=== PATIENT | male | born 1950 | race Caucasian/White ===

== ENCOUNTER 2023-04-19 09:42 | Outpatient (OUT) | payer MEDICARE, SELFPAY ==
[2023-04-19 10:08] LABS: Basophils Percent Auto 0.2 % (0.2-2.0); Eosinophils Absolute Auto 0.1 10^3/uL (0.0-0.7); Eosinophils Percent Auto 1.9 % (0.9-7.0); Hematocrit 44.4 % (42.0-54.0); Immature Granulocytes Abs Auto 0.02 10^3/uL (0.00-0.03); Immature Granulocytes Pct Auto 0.3 % (0.0-0.5); Lymphocytes Absolute Auto 1.3 10^3/uL (1.2-3.8); Lymphocytes Percent Auto 20.7 % (20.5-60.0); Mean Corpuscular HGB Conc 33.8 g/dL (29.9-35.2); Mean Corpuscular Volume 85.9 fL (80.0-94.0); Mean Platelet Volume 10.4 fL (9.5-13.5); Monocytes Absolute Auto 0.6 10^3/uL (0.3-0.8); Monocytes Percent Auto 9.1 % (1.7-12.0); Neutrophils Absolute Auto 4.2 10^3/uL (1.4-6.5); Neutrophils Percent Auto 67.8 % (43.0-75.0); Platelet Count 198 10^3/uL (150-450); Red Blood Count 5.17 10^6/uL (4.70-6.10); Red Cell Distribution Width 12.1 % (11.0-15.0); White Blood Count 6.2 10^3/uL (4.0-11.0)
[2023-04-19 11:13] LABS: Prostate Specific Antigen Scrn 3.83 ng/mL (<=4.00)
[2023-04-19 11:20] LABS: Alanine Aminotransferase 36 U/L (16-63); Albumin Globulin Ratio 1.2; Albumin Level 3.6 g/dL (3.4-5.0); Alkaline Phosphatase 67 U/L (46-116); Anion Gap 10.2; Aspartate Amino Transferase 22 U/L (15-37); BUN Creatinine Ratio 17.9; Bilirubin Total 0.7 mg/dL (0.2-1.0); Calcium 8.9 mg/dL (8.5-10.1); Carbon Dioxide 28.8 mmol/L (21.0-32.0); Chloride 106 mmol/L (98-107); Chol HDL Ratio 2.6; Cholesterol 125 mg/dL (<=200); Estimated GFR (African America >60 (>=60); Estimated GFR (Non-African Ame >60 (>=60); Globulin 3.1 g/dL; Glucose 102 mg/dL (74-106); HDL Cholesterol 48 mg/dL (40-60); Sodium 141 mmol/L (136-145); Total Protein 6.7 g/dL (6.4-8.2); Triglycerides 70 mg/dL (<=150)
== END 2023-04-19 09:43 ==
LOC: LAB 09:45
PROVIDERS: PCP Family Medicine; Visit Provider Family Medicine
DX: N40.0 Benign prostatic hyperplasia without lower urinary tract symptoms (principal); E78.5 Hyperlipidemia, unspecified; M19.90 Unspecified osteoarthritis, unspecified site
CPT/HCPCS: 36415; 80053; 80061; 85025; G0103

== ENCOUNTER 2023-09-20 13:20 | Emergency (ER) | payer MEDICARE, SELFPAY ==
[2023-09-20] VITALS (8 sets, daily range): BP systolic 185–195; BP diastolic 77–116; PULSE 70–76; RESP 18–19; TEMP 37.2; O2SAT 95–98; BMI 33.5
--- NOTE | 2023-09-20 13:44 | ECG_ITS ---
[facility] Test Date: 2023-09-20 Pat Name: VARUN ACE Department: Room: - Gender: Male [employer]: : 1950 Requested By: Order Number: [id number] Reading MD: VENANCIO GOODEN Measurements Intervals [place] Rate: 73 P: 2 NC: 110 QRS: 3 QRSD: 96 T: 24 QT: 388 QTc: 413 Interpretive Statements 1100 Sinus rhythm 2210 Short NC interval 5233 Voltage criteria for LVH 9150 abnormal ECG No previous ECG available for comparison Electronically Signed On 09-21-2023 7:03:14 EST by VENANCIO GOODEN
--- NOTE | 2023-09-20 13:44 | CT_ITS ---
[address] [address] Patient Name: VARUN ACE MRN: [id number] date: 1950 Sex: M Assigned Patient Location: ER Current Patient Location: ER Accession/Order Number: [id number] Exam Date: 09/20/2023 14:56 Report Date: 09/20/2023 15:37 At the request of: COLLINS BORGES Procedure: CT abdomen pelvis w con CLINICAL HISTORY: Abdominal pain. Left-sided abdominal pain. EXAMINATION: Enhanced CT scan of the abdomen and pelvis: 09/20/2023. COMPARISON: None. TECHNIQUE: 3 mm axial images from lung bases through ischial tuberosities following administration of intravenous as well as oral contrast were obtained. Sagittal, coronal reconstructions were also performed. FINDINGS: The visualized lung bases, demonstrate some atelectatic changes in the right middle lobe, right lower lobe. The heart size seems normal. There is slightly elevated right hemidiaphragm. CT ABDOMEN: There is a low-density lesion in the lateral segment of left hepatic lobe, has lobulated appearance, measuring approximately 2.1 cm in the widest transverse dimension, with average Hounsfield units of approximately 1. There are several other low-density lesions further inferiorly in the right as well as left hepatic lobe with other larger lesion further inferiorly in the lateral segment of left hepatic lobe, measuring 1.9 cm with average Hounsfield units of 10. The gallbladder, spleen, right adrenal gland, pancreas seem normal. There is a round low-density lesion in the left adrenal gland, which measures approximately 1.6 x 1.7 cm, average Hounsfield units of approximately 30. However this is postcontrast. There is no hydronephrosis or nephrolithiasis involving the right kidney. There is no definite ureterolithiasis. There is probably a calcified phlebolith along the vicinity of the distal right ureter. There is slight fullness to the collecting systems of the left kidney as well as mildly dilated left ureter. There is no nephrolithiasis. There is no definite calculus seen in the left ureter. However there are a few faint calculi at the base of the bladder probably recently passed. The abdominal aorta is moderately atherosclerotic. There is no retroperitoneal or mesenteric adenopathy. The bowel loops are of normal caliber with a normal-appearing appendix. There are scattered diverticula in the colon. CT PELVIS: Except for a few calculi at the base of the bladder, the bladder is normal. The prostate is enlarged. The overall size of the prostate seems to be 5.8 x 6.6 cm. There is no pelvic adenopathy. There are no focal fluid collections. The visualized osseous structures demonstrate grade 1 spondylolysis of L5 with respect to S1 with bilateral pars defects at the level of L5 with multilevel degenerative disc disease with vacuum disc phenomena at L1-L2, L3-L4, L4-5, and L5-S1. CT/CT abdomen pelvis w con IMPRESSION: 1. There is mild fullness to the collecting systems of the left kidney and mildly dilated left ureter without obstructive uropathy probably due to a recently passed calculus as can be seen some calculi at the base of the bladder. 2. No nephro- or ureterolithiasis on the right. 3. Normal appendix. 4. Diverticulosis without diverticulitis. 5. Prostatomegaly. Electronically authenticated by: JULIANA MCINTYRE Date: 09/20/2023 15:37
--- NOTE | 2023-09-20 13:46 | ED.ABDPAIN1 ---
HPI - Abdominal Pain General Chief Complaint: Abdominal Pain Stated Complaint: FLANK PAIN LEFT SIDE Time Seen by Provider: 09/20/23 13:35 Source: patient Mode of arrival: walk-in History of Present Illness HPI narrative: patient is a 72-year-old male who presents to the emergency department for the evaluation of intermittent left-sided abdominal pain for the last four days. He states the pain comes and goes. He states initially the pain was located in the left lower abdomen and seems to have radiated to the left upper quadrant of the abdomen. He has had dry heaving, no objective fevers. Parish states he has had dark urine, no history of kidney stones. He has been using MiraLAX and stool softeners as he believed he was constipated. He has been having bowel movements throughout the last four days and states he had a normal bowel movement this morning. He denies any previous abdominal surgeries. Related Data Previous Rx's Medication Instructions Recorded ciprofloxacin HCl 500 mg tablet 500 mg PO Q12H #14 tabs 09/20/23 hyoscyamine sulfate 0.125 mg 0.125 mg PO Q6H PRN abdominal pain 09/20/23 tablet (Levsin) #12 tabs ondansetron 4 mg disintegrating 4 mg PO Q6H PRN nausea and 09/20/23 tablet vomiting #12 tabs Allergies Allergy/AdvReac Type Severity Reaction Status Date / Time No Known Drug Allergies Allergy Verified 09/20/23 13:31 Review of Systems ROS Constitutional Denies: fever or chills Ears, nose, mouth, and throat Denies: throat pain Cardiovascular Denies: chest pain Respiratory Denies: shortness of breath or cough Gastrointestinal Reports: abdominal pain, nausea and vomiting; Denies: diarrhea Genitourinary Denies: painful urination Musculoskeletal Denies: back pain Integumentary/Breast Denies: rash Neurological Denies: headache Hematologic/Lymphatic Denies: easy bruising Exam Narrative Exam Narrative: Gen.: Awake, alert, in no distress Head: Normocephalic, atraumatic ENT: Moist mucous membranes Respiratory: No respiratory distress Gastrointestinal: Abdomen is soft, nondistended and mildly tender in the left upper quadrant, no guarding or rebound Extremities: Moves extremities equally Psych: Normal mood and affect Neuro: No focal neuro deficit Skin: Warm, dry, intact Constitutional Vital Signs, click to edit/add: Last Vital Signs Temp 99.0 F 09/20/23 13:27 Pulse 72 09/20/23 14:43 Resp 18 09/20/23 14:43 BP 185/98 H 09/20/23 14:43 Pulse Ox 98 09/20/23 14:43 O2 Del Method Room Air 09/20/23 14:43 Course Vital Signs Vital signs: Vital Signs Temperature 99.0 F 09/20/23 13:27 Pulse Rate 70 09/20/23 13:27 Respiratory Rate 18 09/20/23 13:27 Blood Pressure 190/77 H 09/20/23 13:27 Pulse Oximetry 98 09/20/23 13:27 Oxygen Delivery Method Room Air 09/20/23 13:27 Temperature 99.0 F 09/20/23 13:27 Pulse Rate 72 09/20/23 14:43 Respiratory Rate 18 09/20/23 14:43 Blood Pressure 185/98 H 09/20/23 14:43 Pulse Oximetry 98 09/20/23 14:43 Oxygen Delivery Method Room Air 09/20/23 14:43 MDM - Abdominal Pain MDM Narrative Medical decision making narrative: patient's lab studies show urinary tract infection with no other acute abnormality or evidence of sepsis. Patient treated with IV fluids, Levsin, Toradol, Zofran. CT of the abdomen and pelvis with IV and oral contrast shows the patient has mild hydroureter consistent with a possible recently passed stone, no other visualized ureteral stone noted. Patient with stable creatinine in the Emergency Room. He will be treated for pain, urinary tract infection. Follow-up with PCP and return to the Emergency Room if symptoms change or worsen. Medical Records Attestation: I reviewed the patient's medical records. Lab Data Attestation: I reviewed the patient's lab results. Labs: Lab Results 09/20/23 Range/Units 13:50 WBC 11.4 H (4.0-11.0) 10^3/uL RBC 5.02 (4.70-6.10) 10^6/uL Hgb 14.9 (14.0-18.0) g/dL Hct 43.9 (42.0-54.0) % MCV 87.5 (80.0-94.0) fL MCH 29.7 (25.9-34.0) pg MCHC 33.9 (29.9-35.2) g/dL RDW 12.2 (11.0-15.0) % Plt Count 207 (150-450) 10^3/uL MPV 10.3 (9.5-13.5) fL Neut % (Auto) 83.0 H (43.0-75.0) % Lymph % (Auto) 7.3 L (20.5-60.0) % [place] % (Auto) 8.8 (1.7-12.0) % Eos % (Auto) 0.5 L (0.9-7.0) % Baso % (Auto) 0.2 (0.2-2.0) % Neut # (Auto) 9.5 H (1.4-6.5) 10^3/uL Lymph # (Auto) 0.8 L (1.2-3.8) 10^3/uL [place] # (Auto) 1.0 H (0.3-0.8) 10^3/uL Eos # (Auto) 0.1 (0.0-0.7) 10^3/uL Baso # (Auto) 0.0 (0.0-0.1) 10^3/uL Abs Immat Gran (auto) 0.02 (0.00-0.03) 10^3/uL Imm/Tot Granulo (auto) 0.2 (0.0-0.5) % Sodium 141 (136-145) mmol/L Potassium 4.2 (3.5-5.1) mmol/L Chloride 102 (98-107) mmol/L Carbon Dioxide 29.1 (21.0-32.0) mmol/L Anion Gap 14.1 BUN 22.0 H (7.0-18.0) mg/dL Creatinine 1.08 (0.70-1.30) mg/dL Est GFR ( Amer) >60 (>=60) Est GFR (Non-Af Amer) >60 (>=60) BUN/Creatinine Ratio 20.4 Glucose 113 H (74-106) mg/dL Lactate 1.1 (0.4-2.0) mmol/L Calcium 8.9 (8.5-10.1) mg/dL Total Bilirubin 1.0 (0.2-1.0) mg/dL AST 62 H (15-37) U/L ALT 35 (16-63) U/L Alkaline Phosphatase 70 (46-116) U/L Total Protein 7.1 (6.4-8.2) g/dL Albumin 4.0 (3.4-5.0) g/dL Globulin 3.1 g/dL Albumin/Globulin Ratio 1.3 Urine Color Yellow (YELLOW) Urine Clarity Cloudy A (CLEAR) Urine pH 5.5 (5.0-9.0) Ur Specific [place] 1.025 (1.005-1.025) Urine Protein 30 A (NEG/TRACE) mg/dL Urine Glucose (UA) Negative (NEGATIVE) mg/dL Urine Ketones Trace A (NEGATIVE) mg/dL Urine Occult Blood Large A (NEGATIVE) Urine Nitrite Negative (NEGATIVE) Urine Bilirubin Negative (NEGATIVE) Urine Urobilinogen 0.2 (0.2-1.0) EU/dL Ur Leukocyte Esterase Trace A (NEGATIVE) Urine RBC >100 A (0-2) #/HPF Urine WBC 5-10 A (NONE SEEN) #/HPF Ur Squamous Epith Cells Rare (NONE/RARE) #/LPF Urine Crystals None seen (None Seen) #/HPF Urine Bacteria Small A (NONE SEEN) #/HPF Urine Casts None seen (NONE SEEN) #/LPF Urine Mucus None seen (NONE SEEN) Urine Yeast Seen A (NONE SEEN) Ur Culture Indicated? Yes Imaging Data CT scan - abdomen: Attestation: I have reviewed the pertinent imaging results. ECG Data Attestation: I personally reviewed and interpreted this ECG as follows: (normal sinus rhythm at a rate of seventy-three, no acute ST elevation or ectopy. EKG reviewed by attending physician) ECG interpretation date: 09/20/23 ECG interpretation time: 14:13 Discharge Plan Discharge Chief Complaint: Abdominal Pain Clinical Impression: Urinary tract infection, Abdominal pain Patient Disposition: Home, Self-Care Time of Disposition Decision: 15:51 Condition: Good Prescriptions / Home Meds: New ciprofloxacin HCl 500 mg tablet 500 mg PO Q12H Qty: 14 0RF hyoscyamine sulfate [Levsin] 0.125 mg tablet 0.125 mg PO Q6H PRN (Reason: abdominal pain) Qty: 12 0RF ondansetron 4 mg tablet,disintegrating 4 mg PO Q6H PRN (Reason: nausea and vomiting) Qty: 12 0RF Instructions: Urinary Tract Infection in Men (ED), Abdominal Pain (ED) Stand Alone Forms: Portal Instructions Referrals: Physician,Non-Staff, MD [Primary Care Provider] - 1 week Discharge Date/Time: 09/20/23 16:05
[2023-09-20] MEDS: KETOROLAC TROMETHAMINE 30 MG/ML VIAL 15 MG IVP (13:56)
[2023-09-20] MEDS: ONDANSETRON PF 4 MG/2 ML VIAL IV (13:56)
[2023-09-20] MEDS: 0.9 % SODIUM CHLORIDE 1,000 ML 1000 ML IV (13:56)
[2023-09-20] MEDS: HYOSCYAMINE SULFATE 0.125 MG TAB.SUBL SL (13:57)
[2023-09-20 14:01] LABS: Basophils Percent Auto 0.2 % (0.2-2.0); Bilirubin Urine NEGATIVE (NEGATIVE); Blood Urine LARGE (NEGATIVE); Clarity Urine CLOUDY (CLEAR); Color Urine YELLOW (YELLOW); Eosinophils Absolute Auto 0.1 10^3/uL (0.0-0.7); Eosinophils Percent Auto 0.5 % (0.9-7.0); Glucose Urine UA NEGATIVE (NEGATIVE); Hematocrit 43.9 % (42.0-54.0); Hemoglobin 14.9 g/dL (14.0-18.0); Immature Granulocytes Abs Auto 0.02 10^3/uL (0.00-0.03); Immature Granulocytes Pct Auto 0.2 % (0.0-0.5); Ketones Urine TRACE mg/dL (NEGATIVE); Leukocyte Esterase Urine TRACE (NEGATIVE); Lymphocytes Absolute Auto 0.8 10^3/uL (1.2-3.8); Lymphocytes Percent Auto 7.3 % (20.5-60.0); Mean Corpuscular HGB Conc 33.9 g/dL (29.9-35.2); Mean Corpuscular Hemoglobin 29.7 pg (25.9-34.0); Mean Corpuscular Volume 87.5 fL (80.0-94.0); Mean Platelet Volume 10.3 fL (9.5-13.5); Monocytes Percent Auto 8.8 % (1.7-12.0); Neutrophils Absolute Auto 9.5 10^3/uL (1.4-6.5); Nitrite Urine NEGATIVE (NEGATIVE); Platelet Count 207 10^3/uL (150-450); Protein Urine 30 mg/dL (NEG/TRACE); Red Blood Count 5.02 10^6/uL (4.70-6.10); Red Cell Distribution Width 12.2 % (11.0-15.0); Specific Gravity Urine 1.025 (1.005-1.025); Urobilinogen Urine 0.2 EU/dL (0.2-1.0); White Blood Count 11.4 10^3/uL (4.0-11.0); pH Urine 5.5 (5.0-9.0)
[2023-09-20 14:16] LABS: Alanine Aminotransferase 35 U/L (16-63); Albumin Globulin Ratio 1.3; Alkaline Phosphatase 70 U/L (46-116); Anion Gap 14.1; Aspartate Amino Transferase 62 U/L (15-37); BUN Creatinine Ratio 20.4; Calcium 8.9 mg/dL (8.5-10.1); Carbon Dioxide 29.1 mmol/L (21.0-32.0); Chloride 102 mmol/L (98-107); Estimated GFR (African America >60 (>=60); Estimated GFR (Non-African Ame >60 (>=60); Globulin 3.1 g/dL; Glucose 113 mg/dL (74-106); Potassium 4.2 mmol/L (3.5-5.1); Sodium 141 mmol/L (136-145); Total Protein 7.1 g/dL (6.4-8.2)
[2023-09-20 14:17] LABS: Urine Microscopic Indicated YES
[2023-09-20 14:18] LABS: Bacteria Urine SMALL #/HPF (NONE SEEN); Cast Seen? NONE SEEN #/LPF (NONE SEEN); Crystals Seen? None Seen #/HPF (None Seen); Mucus Urine NONE SEEN (NONE SEEN); RBC Urine >100 #/HPF (0-2); Squamous Epithelial Cell Urine RARE #/LPF (NONE/RARE); Urine Culture Indicated YES
[2023-09-20 14:19] LABS: Lactate/Lactic Acid 1.1 mmol/L (0.4-2.0)
== END 2023-09-20 16:05 | disposition home or self-care (01) ==
PROVIDERS: Physician Assistant; Emergency Provider Emergency Medicine
DX: N39.0 Urinary tract infection, site not specified (principal); R10.32 Left lower quadrant pain; K57.90 Diverticulosis of intestine, part unspecified, without perforation or abscess without bleeding
CPT/HCPCS: 36415; 74177; 80053; 81001; 81003; 83605; 85025; 87086; 93005; 96374; 96375; 99285; Q9966; Q9967

== ENCOUNTER 2024-06-18 08:35 | Outpatient (OUT) | payer MEDICARE, SELFPAY ==
--- OUTSIDE RECORDS SUMMARY | 2024-06-18 08:52 | XMS_ITS | CCD ---
Author Organization [facility] CliniSyin Care Team Providers Care Health Care Administrator Name Role Phone HOUSE, DR GUO Admitting Unavailable HOUSE, DR GUO Attending Unavailable HOUSE, DR GUO Primary Care Unavailable HOUSE, DR GUO Consulting Unavailable HOUSE, DR GUO Admitting Unavailable HOUSE, DR GUO Attending Unavailable HOUSE, DR GUO Primary Care Unavailable HOUSE, DR GUO Consulting Antoine Torres Primary Care Physician [phone] Antoine Madden Attending Antoine Torres Attending Unavailable MATY KENNEY Attending Adamsab MATY Fay Admitting Unavailab MATY Fay Attending Unavailab Antoine Gordon Admitting Unavailable Antoine Madden Attending Unavailable Antoine Madden Attending Unavailable Antoine Madden Attending Unavailable MATY KENNEY Admitting Unavailab MATY Fay Attending Adamsab jose Allergies Allergy Classification Reported Allergen(s) Allergy Type Date of Onset Reaction(s) Facility (1 source) No Known Medication Allergies; Translations: [No Known Medication Allergies] Propensity to adverse reactions (disorder) [facility] Repository Medications Current Medications Medication Drug Class(es) Dates Sig (Normalized) Sig (Original) Pepcid Complete (5 sources) Histamine-2 Receptor Antagonist Start: 03-18-2024 take 1 tablet by mouth once daily Pepcid Complete 1 tab(s), Oral, Daily, Refill(s) 0, takes when needed Start Date: 03/18/24 Status: Ordered meloxicam 15 mg oral tablet (5 sources) Nonsteroidal Anti-inflammatory Drug Start: 03-18-2024 take 1 tablet by mouth once daily meloxicam 15 mg Tab 15 mg = 1 tab(s), Oral, Daily, # 90 tab(s), Refills(s) 0, Pharmacy: [id number], 177.5, cm, 03/18/24 7:06:00 EDT, Height/Length Dosing, 108.2, kg, 03/18/24 7:06:00 EDT, Weight Dosing Start Date: 03/18/24 Status: Ordered Psyllium (5 sources) Start: 03-18-2024 Metamucil See Instructions, Takes twice a amanda with at least 8 ounces of wate., Refills(s) 0 Start Date: 03/18/24 Status: Ordered rosuvastatin calcium 20 mg oral tablet (5 sources) HMG-CoA Reductase Inhibitor Start: 03-18-2024 take 1 tablet by mouth once daily at bedtime rosuvastatin 20 mg Tab 20 mg = 1 tab(s), Oral, Once a day (at bedtime), # 90 tab(s), Refills(s) 0, Pharmacy: [id number], 177.5, cm, 03/18/24 7:06:00 EDT, Height/Length Dosing, 108.2, kg, 03/18/24 7:06:00 EDT, Weight Dosing Start Date: 03/18/24 Status: Ordered tamsulosin hydrochloride 0.4 mg oral capsule (5 sources) alpha-Adrenergic Ted Start: 06-12-2024 End: 06-07-2025 take 2 capsules by mouth once daily tamsulosin 0.4 mg Cap 0.8 mg = 2 cap(s), Oral, Daily, X 90 day(s), # 180 cap(s), Refills(s) 3, Pharmacy: [id number], 180, cm, 06/12/24 9:13:00 EDT, Height/Length Dosing, 108, kg, 06/12/24 9:13:00 EDT, Weight Dosing Start Date: 06/12/24 Stop Date: 06/07/25 Status: Ordered Start: 03-18-2024 take 1 capsule by mo njh once daily tamsulosin 0.4 mg Cap 0.4 mg = 1 cap(s), Oral, Daily, # 90 cap(s), Refills(s) 0, Pharmacy: [id number], 177.5, cm, 03/18/24 7:06:00 EDT, Height/Length Dosing, 108.2, kg, 03/18/24 7:06:00 EDT, Weight Dosing Start Date: 03/18/24 Status: Ordered Vitamin C 1000 mg oral tablet (5 sources) Start: 03-18-2024 take 1 tablet by mouth once daily Vitamin C 1000 mg oral tablet 1,000 mg = 1 tab(s), Oral, Daily, Refills(s) 0 Start Date: 03/18/24 Status: Ordered Completed/Discontinued Medications Medication Drug Class(es) Dates Sig (Normalized) Sig (Original) ciprofloxacin 500 mg oral tablet (2 sources) Quinolone Antimicrobial Start: 06-17-2024 take 1 tablet by mouth once daily Cipro 500 mg Tab 500 mg = 1 tab(s), Oral, Daily, take one tab day before procedure and one tab after procedure, # 2 tab(s), Refills(s) 0, Pharmacy: [id number], 180, cm, 06/17/24 8:19:00 EDT, Height/Length Dosing, 108, kg, 06/17/24 8:19:00 EDT, Weight Dosing Start Date: 06/17/24 Status: Ordered Problems Problem Classification Problem Date Documented Da te Episodic/Chronic Disorders of lipid metabolism (6 sources) Hyperlipidemia, unspecified; Translations: [Hyperlipidemia] Onset: 04-21-2022 03-18-2024 Chronic Essential hypertension (4 sources) Essential (primary) hypertension; Translations: [ESSENTIAL PRIMARY HYPERTENSION] Onset: 04-30-2021 Chronic Genitourinary symptoms and ill-defined conditions (6 sources) Microscopic hematuria; Translations: [Other microscopic hematuria] Onset: 06-12-2024 Episodic Hyperplasia of prostate (14 sources) Benign prostatic hyperplasia with lower urinary tract symptoms; Translations: [Benign prostatic hyperplasia without lower urinary tract symptoms] Onset: 05-04-2021 Chronic Osteoarthritis (6 sources) Unspecified osteoarthritis, unspecified site; Translations: [Osteoarthritis] Onset: 04-21-2022 03-18-2024 Chronic Other circulatory disease (1 source) Elevated blood pressure 03-18-2024 Episodic Other male genital disorders (4 sources) Male erectile dysfunction, unspecified; Translations: [Erectile dysfunction] Onset: 06-12-2024 Chronic Other nutritional; endocrine; and metabolic disorders (4 sources) Body mass index 30+ - obesity 04-22-2024 Chronic Other screening for suspected conditions (not mental disorders or infectious disease) (6 sources) Encounter for screening for malignant neoplasm of prostate; Translations: [Screening for malignant neoplasm done] Onset: 06-12-2024 Episodic Residual codes; unclassified (2 sources) Family history of cancer; Translations: [Family history of malignant neoplasm of prostate] Onset: 06-12-2024 Episodic Residual codes; unclassified (2 sources) Family history of prostate cancer 06-17-2024 Episodic Unclassified (9 sources) Patient encounter status 03-18-2024 Results Test Name Value Interpretation Reference Range Facil ity C Urineon 06-15-2024 Bacteria identified Cx Nom (U) Microbiology PROCEDURE: Urine Culture [R1] SOURCE: U CleanCatch BODY SITE: COLLECTED DATE/TIME: 06/12/2024 10:38 EDT RECEIVED DATE/TIME: 06/13/2024 10:36 EDT START DATE/TIME: 06/13/2024 10:36 EDT FREE TEXT SOURCE: JORGE KENNEY PA-C, PA-C, JENNIFER E FINAL REPORTS Final Report [] Verified Date/Time: 06/15/2024 08:42 EDT No growth at 2 days. Performing Locations R1: This test was performed at: [facility], [address] [place] [address], [facility]- , , [facility] Comment on above: Performed By: #### [id number] #### [facility] [address] [place] [address] Ambulatory Visit Summaryon 0 06-12-2024 Ambulatory Visit Summary Ambulatory Visit Summary VARUN ACE :1950 Visit Date:06/12/2024 Ambulatory Visit Instructions Your Diagnosis BPH (benign prostatic hyperplasia) Prostate cancer screening Family history of prostate cancer Microhematuria ED (erectile dysfunction) Your Care Team Attending Physician - JORGE KENNEY PA-C Primary Care Physician - Antoine Madden MD. This Is Your Medications List tamsulosin (tamsulosin 0.4 mg Cap) Contact prescribing physician if questions or concerns ascorbic acid (Vitamin C 1000 mg oral tablet) calcium carbonate/famotidine/ Mg hydroxide (Pepcid Complete) meloxicam (meloxicam 15 mg Tab) psyllium (Metamucil) rosuvastatin (rosuvastatin 20 mg Tab) Procedures Performed Colonoscopy. Discharge Vitals Heart Rate (Peripheral) 85 Respiratory Rate 16 Blood Pressure 121/74 Height 180 cm Height 71 in Weight 108 kg Weight 237.6 lb BMI 33.33 What to do next Scheduled Follow-Up Appointments Sunday 8:00 AM EST Where: [facility] [address] [place] [address]- You Need to Schedule the Following Appointments Follow Up with ANNE MARIE RUTLEDGE, SONY ORTIZ When: Where: [address] [place] [address] You Need to Complete the Following PSA Total, Blood, Routine collect, 06/12/24, Order for future visit, Lab Collect, Elevated PSA, Required & Missing, Print Label By Order Location Medications What How Much When Instructions Changed tamsulosin (tamsulosin 0.4 mg Cap) 2 Capsules By Mouth Every day Duration: 90 Days Pickup at [id number] Unchanged ascorbic acid (Vitamin C 1000 mg oral tablet) 1 Tablets By Mouth Every day Contact prescribing physician if questions or concerns Unchanged calcium carbonate/ famotidine/ Mg hydroxide (Pepcid Complete) 1 Tablets By Mouth Every day takes when needed Contact prescribing physician if questions or concerns Unchanged meloxicam (meloxicam 15 mg Tab) 1 Tablets By Mouth Every day Contact prescribing physician if questions or concerns Unchanged psyllium (Metamucil) See instructions Takes twice a amanda with at least 8 ounces of wate. Contact prescribing physician if questions or concerns Unchanged rosuvastatin (rosuvastatin 20 mg Tab) 1 Tablets By Mouth Once a day (at bedtime) Contact prescribing physician if questions or concerns Pharmacy Information [id number]: [address] [place], [place] [id number] [phone] Allergies No Known Medication Allergies Problems Ongoing - Any problem that you are currently receiving treatment for. BMI 34.0-34.9,adult Hyperlipemia Microhematuria Osteoarthritis Prostate cancer screening Historical - Any problem that you are no longer receiving treatment for. BPH with urinary obstruction Elevated PSA Screening PSA (prostate specific antigen) Patient Survey You may receive a survey via text or e-mail asking about your office visit. Please share your experience with us by completing your survey. We appreciate your feedback and thank you for choosing us for your care. Education Materials Benign Prostatic Hyperplasia Benign prostatic hyperplasia (BPH) is an enlarged prostate gland that is caused by the normal aging process. The prostate may get bigger as a man gets older. The condition is not caused by cancer. The prostate is a walnut-sized gland that is involved in the production of semen. It is located in front of the rectum and below the bladder. The bladder stores urine. The urethra carries stored urine out of the body. An enlarged prostate can press on the urethra. This can make it harder to pass urine. The buildup of urine in the bladder can cause infection. Back pressure and infection may progress to bladder damage and kidney (renal) failure. What are the causes? This condition is part of the normal aging process. However, not all men develop problems from this condition. If the prostate enlarges away from the urethra, urine flow will not be blocked. If it enlarges toward the urethra and compresses it, there will be problems passing urine. What increases the risk? This condition is more likely to develop in men older than 50 years. What are the signs or symptoms? Symptoms of this condition include: ? Getting up often during the night to urinate. ? Needing to urinate frequently during the day. ? Difficulty starting urine flow. ? Decrease in size and strength of your urine stream. ? Leaking (dribbling) after urinating. ? Inability to pass urine. This needs immediate treatment. ? Inability to completely empty your bladder. ? Pain when you pass urine. This is more common if there is also an infection. ? Urinary tract infection (UTI). How is this diagnosed? This condition is diagnosed based on your medical history, a physical exam, and your sympt (more content not included)... Normal [facility] Reminderson 06-12-2024 Reminders Reminders From: Janice Edmondson To: [facility] - Administrative; Sent: 06/12/2024 10:03:23 EDT Show up: 01/03/2025 10:03:00 EST Subject: Ambulatory Reminder Due Date/Time: 06/14/2025 10:03:00 EDT Reminder/Recall Patient needs scheduled for 1yr f/u with PSA with [facility], due back mid June 2025 Normal [facility] URINALYSISOrdered By: Bruce Houser on 06-12-2024 Bilirubin Ql (U) Negative Normal Negativemg/dL [facility] UA Auto SS Clarity (U) Ex.Turbid *ABN* (06/12/24 10:37 AM) Invalid Interpretation Code Clear [facility] UA Auto SS Color (U) Light-Sandoval 1 *ABN* (06/12/24 10:37 AM) Invalid Interpretation Code Yellow [facility] UA Auto SS Comment on above: Interpretive Data: M icroscopic readings are only performed on those samples that meet specific criteria set forth by [facility] Laboratory. Glucose Ql (U) Negative Normal Negativemg/dL [facility] UA Auto SS Hemoglobin Auto test strip (U) [Mass/Vol] Trace Invalid Interpretation Code Negative [facility] UA Auto SS Ketones Auto test strip Ql (U) Negative Normal Negativemg/dL [facility] UA Auto SS Leukocyte esterase Auto test strip Ql (U) Negative (06/12/24 10:37 AM) Normal Negative [facility] UA Auto SS Mucus Auto Ql (U) Trace Normal Negative [facility] UA Auto SS Nitrite Auto test strip Ql (U) Negative Normal Negativemg/dL [facility] UA Auto SS pH (U) 5.0 *NA* (06/12/24 10:37 AM) Invalid Interpretation Code 5.0 - 9.0 [facility] UA Auto SS Protein Ql (U) Negative Normal Negativemg/dL [facility] UA Auto SS RBC Ql (U) 4-20 graded/HPF Invalid Interpretation Code 0-3graded/HPF [facility] UA Auto SS Specific gravity (U) [Rel density] 1.027 *NA* (06/12/24 10:37 AM) Invalid Interpretation Code 1.005 - 1.030 [facility] UA Auto SS Urobilinogen (U) [Mass/Vol] Negative Normal Negativemg/dL [facility] UA Auto SS WBC Auto (Urine sed) [#/Area] 6-15 *ABN* (06/12/24 10:37 AM) Invalid Interpretation Code 0-5 [facility] UA Auto SS URINALYSISOrdered By: Alysa Harrington on 06-12-2024 UA Spec Desc Clean Catch (06/12/24 10:37 AM) Normal [facility] Auto SS Urinalysis with Microon Bilirubin Ql (U) Negative Normal Negative [facility] Comment on above: Performed By: #### 4 [id number] #### [facility] [address] [place] [address] Clarity (U) Ex.Turbid Abnormal Clear [facility] Comment on above: Performed By: #### 4 [id number] #### [facility] [address] [place] [address] Color (U) Light-Sandoval Abnormal Yellow [facility] Comment on above: Result Comment: Micr oscopic readings are only performed on those samples that meet specific criteria set forth by [facility]. Performed By: #### 4 [id number] #### [facility] [address] [place] [address] Glucose Ql (U) Negative Normal Negative [facility] Comment on above: Performed By: #### 4 [id number] #### [facility] [address] [place] [address] Hemoglobin Auto test strip (U) [Mass/Vol] Trace Abnormal Negative [facility] Comment on above: Performed By: #### 4 [id number] #### [facility] [address] [place] [address] Ketones Auto test strip Ql (U) Negative Normal Negative [facility] Comment on above: Performed By: #### 4 [id number] #### [facility] [address] [place] [address] Leukocyte esterase Auto test strip Ql (U) Negative Normal Negative [facility] Comment on above: Performed By: #### 4 [id number] #### [facility] [address] [place] [address] Mucus Auto Ql (U) Trace Normal Negative [facility] Comment on above: Performed By: #### 4 [id number] #### [facility] [address] [place] [address] Nitrite Auto test strip Ql (U) Negative Normal Negative [facility] Comment on above: Performed By: #### 4 [id number] #### [facility] [address] [place] [address] pH (U) 5.0 [pH] Invalid Interpretation Code 5.0-9.0 [facility] Comment on above: Performed By: #### 4 [id number] #### [facility] [address] [place] [address] Protein Ql (U) Negative Normal Negative [facility] Comment on above: Performed By: #### 4 [id number] #### [facility] [address] [place], [place] [id number] RBC Ql (U) 4-20 Abnormal 0-3 [facility] Comment on above: Performed By: #### 4 [id number] #### [facility] [address] [place], [place] [id number] Specific gravity (U) [Rel density] 1.027 Invalid Interpretation Code 1.005-1.030 [facility] Comment on above: Performed By: #### 4 [id number] #### [facility] [address] [place], [place] [id number] Urobilinogen (U) [Mass/Vol] Negative Normal Negative [facility] Comment on above: Performed By: #### 4 [id number] #### [facility] [address] [place], [place] [id number] WBC Auto (Urine sed) [#/Area] 6-15 Abnormal 0-5 [facility] Comment on above: Performed By: #### 4 [id number] #### [facility] [address] [place] [address] Type of Urine collection method Clean Catch Normal [facility] Comment on above: Performed By: #### 4 [id number] #### [facility] [address] [place] [address] Ambulatory Visit Summaryon 0 04-22-2024 Ambulatory Visit Summary VARUN ACE :1950 Visit Date:04/22/2024 Ambulatory Visit Instructions Your Diagnosis Annual visit for general adult medical examination without abnormal findings Hyperlipemia Osteoarthritis BPH with urinary obstruction Obesity due to excess calories Encounter for hepatitis C screening test for low risk patient Colon cancer screening declined Your Care Team Attending Physician - Antoine Madden MD Primary Care Physician - Antoine Madden MD This Is Your Medications List ascorbic acid (Vitamin C 1000 mg oral tablet) calcium carbonate/famotidine/ Mg hydroxide (Pepcid Complete) meloxicam (meloxicam 15 mg Tab) psyllium (Metamucil) rosuvastatin (rosuvastatin 20 mg Tab) tamsulosin (tamsulosin 0.4 mg Cap) Procedures Performed Colonoscopy. Discharge Vitals Heart Rate (Peripheral) 80 Respiratory Rate 18 Blood Pressure 130/68 Height 177.5 cm Height 70 in Weight 109.9 kg Weight 241.78 lb BMI 34.88 What to do next Scheduled Follow-Up Appointments 2023 9:20 AM EDT With: JORGE KENNEY PA-C Where: [facility] Invalid Interpretation Code [address] [place] [address]- \.br\ You Need to Complete the Following\.br\ HCV Antibody RFX to Quant PCR, Blood, Routine collect, 04/22/24, Order for future visit, Lab Collect, Annual visit for general adult medical examination without abnormal findings [facility] Ambulatory Visit Summary VARUN ACE :1950 Visit Date:04/22/2024 Ambulatory Visit Instructions Your Diagnosis Elevated blood pressure reading Elevated PSA BMI 34.0-34.9,adult Class 1 obesity due to excess calories in adult Nonsmoker Your Care Team Attending Physician - Antoine Madden MD Primary Care Physician - Antoine Madden MD This Is Your Medications List Contact prescribing physician if questions or concerns ascorbic acid (Vitamin C 1000 mg oral tablet) calcium carbonate/famotidine/ Mg hydroxide (Pepcid Complete) meloxicam (meloxicam 15 mg Tab) psyllium (Metamucil) rosuvastatin (rosuvastatin 20 mg Tab) tamsulosin (tamsulosin 0.4 mg Cap) Procedures Performed Colonoscopy. Discharge Vitals Temperature (Temporal Artery) 37.3 ?C Heart Rate (Peripheral) 80 Respiratory Rate 18 Blood Pressure 130/68 Height 177.5 cm Height 70 in Weight 109.9 kg Weight 241.78 lb BMI 34.88 What to do next Scheduled Follow-Up Appointments 2023 9:20 AM EDT With: JORGE KENNEY PA-C Where: [facility] Family Medicine Office/Clini c Noteon 04-22-2024 Family Medicine Office/Clinic Note Chief Complaint Medicare Wellness Visit History of Present Illness Covid-19, MERS, Ebola Screen *Contact With Person With Highly Contagious Disease Like Ebola/MERS/COVID-19 AND Have One or More of the Symptoms Below : No *Travel to a Country With Wide-Spread Ebola/MERS/COVID-19 in the Past 21 Days AND Have One or More of the Symptoms Below : No Patient Reported Covid-19 Testing : No *Verify Droplet, Contact Precautions for Ebola (Reference for CDC) : N/A *Verify Airborne, Droplet Precautions for MERS/COVID-19 : N/A Becky Hare LPN 04/22/2024 9:19 EDT Medicare/Medicaid Summary Chief Complaint : Medicare Wellness Visit Patient Counseled : Nutrition, Physical activity, Elevated BMI Height/Length Measured : 177.5 cm(Converted to: 5 ft 10 in, 69.88 in) Weight Measured : 109.9 kg(Converted to: 242 lb 5 Ounces, 242.288 lb) Body Mass Index Measured : 34.88 kg/m2 Height in Inches : 70 in Weight in Pounds : 241.78 lb Systolic Blood Pressure : 130 mmHg Diastolic Blood Pressure : 68 mmHg Blood Pressure Location : Right arm Blood Pressure Position : Sitting Peripheral Pulse Rate : 80 bpm Respiratory Rate : 18 br/min SpO2 : 96 % Pain Present : No actual or suspected pain Becky Hare LPN 04/22/2024 9:19 EDT Hearing and Vision Screening FT Vision Screen Comments : Wears corrective lenses occasionally to read, sees Dr. Ronald Doty at [facility] for eye exams. Becky Hare LPN 04/22/2024 10:02 EDT FT Whisper Test Comments : No deficits noted. Becky Hare LPN - 04/22/2024 9:19 EDT Advance Directive FT Type of Advance Directive : Living will, Medical durable power of employment law attorney Patient Wishes to Receive Further Information on Advance Directives : No Organ Donation Consent : No Advance Directive : Yes Becky Hare LPN - 04/22/2024 10:02 EDT Procedures / Surgeries FT - Procedure History (As Of: 04/22/2024 10:05:30 EDT) Anesthesia Minutes: 0 ; Procedure Name: Colonoscopy ; Procedure Minutes: 0 ; Comments: 03/18/2024 7:03 EDT - Rupa Bang LPN in his 50's ; Last Reviewed Dt/Tm: 04/22/2024 10:03:33 EDT Family History Family History (As Of: 04/22/2024 10:05:30 EDT) Mother: Relation: Mother ; Gender: Female ; Nomenclature: Heart disease ; Value: Positive Medicare/Medicaid Social History FT Social History (As Of: 04/22/2024 10:05:30 EDT) Alcohol: Low Risk Current, 1-2 times per month, 1 drinks/episode average. 2.00 drinks/episode maximum. Previous treatment: None. Alcohol use interferes with work or home: No. Drinks more than intended: No. Others hurt by drinking: No. Ready to change: No. Household alcohol concerns: No. Comments: 04/22/2024 10:04 - Becky Hare LPN: Patient states he drinks 1-2 drinks monthly or less. Denies concerns. (Last Updated: 04/22/2024 10:04:12 EDT by Becky Hare LPN) Tobacco: Denies Tobacco Use Never (less than 100 in lifetime) Tobacco Use:. Never Smokeless Tobacco Use:. (Last Updated: 04/22/2024 09:06:05 EDT by Rupa Bang LPN) Substance Abuse: Denies Substance Abuse (Last Updated: 04/22/2024 10:04:15 EDT by Becky Hare LPN ) Health Risk Assessment FT HRA little interest or pleasure? : No HRA down, depressed, or hopeless? : No Hazards in your house? : No Fall Risk Past Year : No Worried About Falling : No Use a Cane or Walker? : No Someone Helps You in the Morning : No Fallen or felt dizzy standing up? : No Assistance with personal care? : No Trouble taking meds correctly? : No HRA Pain Present : No Able to walk without help? : Yes Ability to shop w/out help : Yes Prepare your own meals? : Yes Housework without help? : Yes Handle money without help : Yes Track own medications without help? : Yes Becky Hare LPN 04/22/2024 9:19 EDT Overall mood for past four weeks : Pretty well Becky Hare LPN [facility] 04/22/2024 10:02 EDT General health rating : Excellent Someone avail. to help if needed? : Yes, as much as I wanted Phys. & emotional health limit social act? : Not at all Becky Hare LPN 04/22/2024 9:19 EDT Becky Hare LPN [facility] 04/22/2024 9:19 EDT Misc Health Risks Grid Teeth or denture problems : Never Becky Hare LPN [facility] 04/22/2024 9:19 EDT Trouble eating well : Seldom Problems using the telephone : Seldom Becky Hare LPN [facility] 04/22/2024 10:02 EDT Confident you control health problems : Very confident Difficulties driving your car? : No Seatbelts : I always fasten my seat belt Becky Hare LPN [facility] 04/22/2024 9:19 EDT Depression Screening Little Interest, Pleasure in Activities (ref) : Not at all Feeling Down, Depressed, Hopeless : Not at all Initial Depression Screening Score : 0 SCORE Depression Screening Result : Negative Becky Hare LPN [facility] 04/22/2024 9:19 EDT Social Determinants (PRAPARE) What is your housing situation today? : I have housing You or Family Gone Without Household Needs Past Year : No No Trans (more content not included)... Normal [facility] Comment on above: Result Comment: Elec tronically Signed By: Chano ANTONIO, Antoine Aguayo.freddy\Date and Time Signed: 04/22/24 12:50 EDT\.br\Electronically Co-Signed By: Becky Hare LPN\.br\Date and Time Co-Signed: 04/22/24 10:14 EDT Family Medicine Office/Clinic Note HPI Staff Varun is a 73 year old male presenting for follow up lab results and BP AMW today questions/concerns: needs his atorvastatin, meloxicam and tamsulosin all refilled. History of Present Illness Here for follow up. - NO issues at this time. - Needs BP rechecked. Review of Systems PHQ Score Initial Depression Screen Score: 0 SCORE Physical Exam Vitals & Measurements T: 37.3 ?C(Temporal Artery) HR: 80(Peripheral) RR: 18 BP: 130/68 SpO2: 96% HT: 70 in HT: 177.5 cm WT: 109.9 kg WT: 241.78 lb BMI: 34.88 General: alert, no acute distress ENMT: oral mucosa moist, Cardiovascular: regular rate and rhythm, normal peripheral perfusion Respiratory: Lungs CTA, respirations non labored Extremities: no deformity, no trauma Neurological: oriented x 4, LOC appropriate for age, CN II-XII intact, motor strength equal & normal bilaterally, speech normal Abdomen: Soft, Nontender, Non-distended, + BS Assessment/Plan 1. Elevated blood pressure reading (R03.0: Elevated blood-pressure reading, without diagnosis of hypertension) - Resolved - Will continue to monitor 2. Elevated PSA (R97.20: Elevated prostate specific antigen [PSA]) - Seeing Urology - Discussed the options with the patient - Follow up in 6 months 3. BMI 34.0-34.9,adult (Z68.34: Body mass index [BMI] 34.0-34.9, adult) - BMI education uploaded Ordered: Body Mass Index (BMI) documented 3008F Current tobacco non-user 1036F Depression Screening Negative 3352F Most recent diastolic blood pressure <80 mm Hg 3078F Patient screen for fall risk: no falls in last year or 1 fall with no injury in last year 1101F Systolic BP 130-139 mm Hg (Most Recent) 3075F 4. Class 1 obesity due to excess calories in adult (E66.09: Other obesity due to excess calories) - Diet and exercise advised Ordered: Body Mass Index (BMI) documented 3008F Current tobacco non-user 1036F Depression Screening Negative 3352F Most recent diastolic blood pressure <80 mm Hg 3078F Patient screen for fall risk: no falls in last year or 1 fall with no injury in last year 1101F Systolic BP 130-139 mm Hg (Most Recent) 3075F 5. Nonsmoker (Z78.9: Other specified health status) - Follow up PRN Ordered: Body Mass Index (BMI) documented 3008F Current tobacco non-user 1036F Depression Screening Negative 3352F Most recent diastolic blood pressure <80 mm Hg 3078F Patient screen for fall risk: no falls in last year or 1 fall with no injury in last year 1101F Systolic BP 130-139 mm Hg (Most Recent) 3075F Follow-up No qualifying data available Problem List/Past Medical History Ongoing BMI 34.0-34.9,adult BPH with urinary obstruction Elevated PSA Hyperlipemia Osteoarthritis Screening PSA (prostate specific antigen) Historical No qualifying data Procedure/Surgical History Colonoscopy. Medications meloxicam 15 mg Tab, 15 mg= 1 tab(s), Oral, Daily Metamucil, See Instructions Pepcid Complete, 1 tab(s), Oral, Daily rosuvastatin 20 mg Tab, 20 mg= 1 tab(s), Oral, Once a day (at bedtime) tamsulosin 0.4 mg Cap, 0.4 mg= 1 cap(s), Oral, Daily Vitamin C 1000 mg oral tablet, 1000 mg= 1 tab(s), Oral, Daily Allergies No Known Medication Allergies Social History Tobacco Never (less than 100 in lifetime) Tobacco Use:. Never Smokeless Tobacco Use:., 04/22/2024 Family History Heart disease: Mother. Immunizations Vaccine Date Status Comments SARS-CoV-2 (COVID-19) mRNAMUL.ORD![id number] 10/14/2022 Recorded influenza virus vaccine, inactivated 10/13/2022 Recorded SARSCoV2 mRNA(gayla gresham) vac 03/14/2022 Recorded influenza virus vaccine, inactivated 09/27/2021 Recorded SARS-CoV-2 (COVID-19) mRNA BNT-162b2 vax 08/20/2021 Recorded SARS-CoV-2 (COVID-19) mRNA BNT-162b2 vax 01/12/2021 Recorded 2024-03-18: [id number] SARS-CoV-2 (COVID-19) mRNA BNT-162b2 vax 12/21/2020 Recorded 2024-03-18: [id number] Normal [facility] Comment on above: Result Comment: Danie matthew Signed By: Chano ANTONIO, Antoine Abel\Date and Time Signed: 04/22/24 09:35 EDT Patient Educationon 04-22-20 24 Patient Education Nutrition Healthy Eating Following a healthy eating pattern may help you to achieve and maintain a healthy body weight, reduce the risk of chronic disease, and live a long and productive life. It is important to follow a healthy eating pattern at an appropriate calorie level for your body. Your nutritional needs should be met primarily through food by choosing a variety of nutrient-rich foods. What are tips for following this plan? Reading food labels ? Read labels and choose the following: ? Reduced or low sodium. ? Juices with 100% fruit juice. ? Foods with low saturated fats and high polyunsaturated and monounsaturated fats. ? Foods with whole grains, such as whole wheat, cracked wheat, brown rice, and wild rice. ? Whole grains that are fortified with folic acid. This is recommended for women who are or who want to become . ? Read labels and avoid the following: ? Foods with a lot of added sugars. These include foods that contain brown sugar, corn sweetener, corn syrup, dextrose, fructose, glucose, high-fructose corn syrup, honey, invert sugar, lactose, malt syrup, maltose, molasses, raw sugar, sucrose, trehalose, or turbinado sugar. ? Do not eat more than the following amounts of added sugar per day: ? 6 teaspoons (25 g) for women. ? 9 teaspoons (38 g) for men. ? Foods that contain processed or refined starches and grains. ? Refined grain products, such as white flour, degermed cornmeal, white bread, and white rice. Shopping ? Choose nutrient-rich snacks, such as vegetables, whole fruits, and nuts. Avoid high-calorie and high-sugar snacks, such as potato chips, fruit snacks, and candy. ? Use oil-based dressings and spreads on foods instead of solid fats such as butter, stick margarine, or cream cheese. ? Limit pre-made sauces, mixes, and instant products such as flavored rice, instant noodles, and ready-made pasta. ? Try more plant-protein sources, such as tofu, tempeh, black beans, edamame, lentils, nuts, and seeds. ? Explore eating plans such as the Mediterranean diet or vegetarian diet. Cooking ? Use oil to saut? or stir-cortes foods instead of solid fats such as butter, stick margarine, or lard. ? Try baking, boiling, grilling, or broiling instead of frying. ? Remove the fatty part of meats before cooking. ? Steam vegetables in water or broth. Meal planning ? At meals, imagine dividing your plate into fourths: ? One-half of your plate is fruits and vegetables. ? One-fourth of your plate is whole grains. ? One-fourth of your plate is protein, especially lean meats, poultry, eggs, tofu, beans, or nuts. ? Include low-fat dairy as part of your daily diet. Lifestyle ? Choose healthy options in all settings, including home, work, school, restaurants, or stores. ? Prepare your food safely: ? Wash your hands after handling raw meats. ? Keep food preparation surfaces clean by regularly washing with hot, soapy water. ? Keep raw meats separate from nrzmf-xo-zgb foods, such as fruits and vegetables. ? title investigator, meat, poultry, and eggs to the recommended internal temperature. ? Store foods at safe temperatures. In general: ? Keep cold foods at 40?F (4.4?C) or below. ? Keep hot foods at 140?F (60?C) or above. ? Keep your freezer at 0?F (-17.8?C) or below. ? Foods are no longer safe to eat when they have been between the temperatures of 40??140?F (4.4?60?C) for more than 2 hours. What foods should I eat? Fruits Aim to eat 2 cup-equivalents of fresh, canned (in natural juice), or frozen fruits each day. Examples of 1 cup-equivalent of fruit include 1 small apple, 8 large strawberries, 1 cup canned fruit, ? cup dried fruit, or 1 cup 100% juice. Vegetables Aim to eat 2??3 cup-equivalents of fresh and frozen vegetables each day, including different varieties and colors. Examples of 1 cup-equivalent of vegetables include 2 medium carrots, 2 cups raw, leafy greens, 1 cup chopped vegetable (raw or cooked), or 1 medium baked potato. Grains Aim to eat 6 ounce-equivalents of whole grains each day. Examples of 1 ounce-equivalent of grains include 1 slice of bread, 1 cup fkzyc-lv-vrm cereal, 3 cups popcorn, or ? cup cooked rice, pasta, or cereal. Meats and other proteins Aim to eat 5?6 ounce-equivalents of protein each day. Examples of 1 ounce-equivalent of protein include 1 egg, 1/2 cup nuts or seeds, or 1 tablespoon (16 g) peanut butter. A cut of meat or fish that is the size of a deck of cards is about 3?4 ounce-equivalents. ? Of the protein you eat each week, try to have at least 8 ounces come from seafood. This includes salmon, trout, [place], and anchovies. Dairy Aim to eat 3 cup-equivalents of fat-free or low-fat dairy each day. Examples of 1 cup-equivalent of dairy include 1 cup (240 mL) milk, 8 ounces (250 g) yogurt, 1? ounces (44 g) natural cheese, or 1 cup (240 mL) fortified soy milk. Fats and oils ? Aim for about 5 teaspoons (21 g) per day (more content not included)... [facility] Screenson 04-22-2024 Screens [id number]#1[address] 00TIFF [facility] Physician Referralon 024 Physician Referral [id number]# 1.00TIFF [facility] Ambulatory Visit Summaryon 0 03-18-2024 Ambulatory Visit Summary ACEVARUN HOOPER :1950 Visit Date:03/18/2024 Ambulatory Visit Instructions Your Diagnosis Hyperlipemia Elevated blood pressure reading Osteoarthritis BPH with urinary obstruction Screening PSA (prostate specific antigen) BMI 34.0-34.9,adult Class 1 obesity due to excess calories in adult Nonsmoker Other obstructive and reflux uropathy Your Care Team Attending Physician - Antoine Madden MD. Primary Care Physician - Antoine Madden MD. This Is Your Medications List meloxicam (meloxicam 15 mg Tab) rosuvastatin (rosuvastatin 20 mg Tab) tamsulosin (tamsulosin 0.4 mg Cap) Contact prescribing physician if questions or concerns ascorbic acid (Vitamin C 1000 mg oral tablet) calcium carbonate/famotidine/ Mg hydroxide (Pepcid Complete) psyllium (Metamucil) Procedures Performed Colonoscopy. Discharge Vitals Temperature (Temporal Artery) 37.1 ?C Heart Rate (Peripheral) 72 Respiratory Rate 16 Blood Pressure 172/90 Height 70 in Height 177.5 cm Weight 238.04 lb Weight 108.2 kg BMI 34.34 What to do next Scheduled Follow-Up Appointments Sunday 9:15 AM EDT With: Antoine Madden MD Where: [address] [address]- \.br\ Medications\.br \ What How Much When Instructions\.b r\ Changed meloxicam (meloxicam 15 mg Tab) 1 Tablets By Mouth Every day Pickup at [facility]\.br\ Changed rosuvastatin (rosuvastatin 20 mg Tab) 1 Tablets By Mouth Once a day (at bedtime) Pickup at [facility]\.br\ Changed tamsulosin (tamsulosin 0.4 mg Cap) 1 Capsules By Mouth Every day Pickup at [facility]\.br\ Unchanged ascorbic acid (Vitamin C 1000 mg oral tablet) 1 Tablets By Mouth Every day Contact prescribing physician if questions or concerns \.br\ Unchanged calcium carbonate/ famotidine/ Mg hydroxide (Pepcid Complete) 1 Tablets By Mouth Every day takes when needed Contact prescribing physician if questions or concerns \.br\ Unchanged psyllium (Metamucil) See instructions Takes twice a amanda with at least 8 ounces of wate. Contact prescribing physician if questions or concerns \.br\ Pharmacy Information\.br \ [facility]: [address] [place], [place] [id number] [phone]\.br\ Allergies\.br\ No Known Medication Allergies\.br\ Problems\.br\ Ongoing - Any problem that you are currently receiving treatment for.\.br\ BPH with urinary obstruction\.br \ Elevated blood pressure reading\.br\ Hyperlipemia\.b r\ Osteoarthritis\ .br\ Screening PSA (prostate specific antigen)\.br\ Patient Survey\.br\ You may receive a survey via text or e-mail asking about your office visit. Please share your experience with us by completing your survey. We appreciate your feedback and thank you for choosing us for your care.\.br\ Education Materials\.br\ BMI for Adults\.br\ What is BMI?\.br\ Body mass index (BMI) is a number that is calculated from a person's weight and height. BMI can help estimate how much of a person's weight is composed of fat. BMI does not measure body fat directly. Rather, it is an alternative to procedures that directly measure body fat, which can be difficult and expensive.\.br\ BMI can help identify people who may be at higher risk for certain medical problems.\.br\ What are BMI measurements used for?\.br\ BMI is used as a screening tool to identify possible weight problems. It helps determine whether a person is obese, overweight, a healthy weight, or underweight.\.b r\ BMI is useful for:\.br\ ? \.br\ Identifying a weight problem that may be related to a medical condition or may increase the risk for medical problems.\.br\ ? \.br\ Promoting changes, such as changes in diet and exercise, to help reach a healthy weight. BMI screening can be repeated to see if these changes are working.\.br\ How is BMI calculated?\.br \ BMI involves measuring your weight in relation to your height. Both height and weight are measured, and the BMI is calculated from those numbers. This can be done either in [place] or metric measurements. Note that charts and online BMI calculators are available to help you find your BMI quickly and easily without having to do these calculations yourself.\.br\ To calculate your BMI in [place] measurements:\. br\ \.br\ 1. \.br\ Measure your weight in pounds (lb).\.br\ 2. \.br\ Multiply the number of pounds by 703.\.br\ ? \.br\ For example, for a person who weighs 180 lb, multiply that number by 703, which equals 126,540.\.br\ 3. \.br\ Measure your height in inches. Then multiply that number by itself to get a measurement called inches squared. \.br\ ? \.br\ For example, for a person who is 70 inches tall, the inches squared measurement is 70 inches x 70 inches, which equals 4,900 inches squared.\.br\ 4. \.br\ Divide the total from step 2 (number of lb x 703) by the total from step 3 (inches squared): 126,540 ? 4,900 = 25.8. This is your BMI.\.br\ To calculate your BMI in metric measurements:\. br\ 1. \.br\ Measure your weight in kilograms (kg).\.br\ 2. \.br\ Measure your height in meters (m). Then multiply that number by itself to get a measurement called meters squared. \.br\ ? \.br\ For example, for a person who is 1.75 m tall, the meters squared measurement is 1.75 m x 1.75 m, which is equal to 3.1 meters squared.\.br\ 3. \.br\ Divide the number of kilograms (your weight) by the meters squared number. In this example: 70 ? 3.1 = 22.6. This is your BMI.\.br\ What do the results mean?\.br\ BMI charts are used to identify whether you are underweight, normal weight, overweight, or obese. The following guidelines will be used:\.br\ ? \.br\ Underweight: BMI less than 18.5.\.br\ ? \.br\ Normal weight: BMI between 18.5 and 24.9.\.br\ ? \.br\ Overweight: BMI between 25 and 29.9.\.br\ ? \.br\ Obese: BMI of 30 or above.\.br\ Keep these notes in mind:\.br\ ? \.br\ Weight includes both fat and muscle, so someone with a muscular build, such as an athlete, may have a BMI that is higher than 24.9. In cases like these, BMI is not an accurate measure of body fat.\.br\ ? \.br\ To determine if excess body fat is the cause of a BMI of 25 or higher, further assessments may need to be done by a health care provider.\.br\ ? \.br\ BMI is usually interpreted in the same way for men and women.\.br\ Where to find more information\.br \ For more information about BMI, including tools to quickly calculate your BMI, go to these websites:\.br\ ? \.br\ Centers for Disease Control and Prevention: www.cdc.gov\.br \ ? \.br\ [employer]: www.heart.org\. br\ ? \.br\ National Heart, Lung, and Blood [place]: www.nhlbi.nih.g ov\.br\ Summary\.br\ ? \.br\ Body mass index (BMI) is a number that is calculated from a person's weight and height.\.br\ ? \.br\ BMI may help estimate how much of a person's weight is composed of fat. BMI can help identify those who may be at higher risk for certain medical problems.\.br\ ? \.br\ BMI can be measured using [place] measurements or metric measurements.\. br\ ? \.br\ BMI charts are used to identify whether you are underweight, normal weight, overweight, or obese.\.br\ This information is not intended to replace advice given to you by your health care provider. Make sure you discuss any questions you have with your health care provider.\.br\ Document Revised: 07/14/2020 Document Reviewed: 05/21/2020 [employer] Patient Education ? 2022 [employer].\.br\ \.br\ [facility] CBC w/ Auto Diffon 4 Basophils/100 WBC (Bld) 0.4 % Normal 0.0-2.0 [facility] Comment on above: Performed By: #### 1 [id number], 9501433, 9613129, 9749332, [id number] ####[facility] [id number] [place] [address] Basophils/Leukocytes Auto (Bld) [Pure # fraction] 0.0 E9/L Normal 0.0-0.2 [facility] Comment on above: Performed By: #### 1 [id number], 2942904, 0118148, 2874246, [id number] ####[address] [place] [address] Eosinophils (Bld) [#/Vol] 0.2 E9/L Normal 0.0-0.5 [facility] Comment on above: Performed By: #### 1 2946017, 2377801, 2832825, 9252168, 90771060 ####[address] [address] Eosinophils/100 WBC (Bld) 3.7 % Normal 0.0-8.0 [facility] Comment on above: Performed By: #### 1 1351161, 3339291, 8579778, 9216142, 44831658 ####[address] [address] Erythrocyte distribution width (RBC) [Ratio] 13.1 % Normal 10.9-14.2 [facility] Comment on above: Performed By: #### 1 5034764, 0811225, 8492182, 4659325, 01264993 ####[address] [address] Hematocrit (Bld) [Volume fraction] 45.8 % Normal 37.7-49.0 [facility] Comment on above: Performed By: #### 1 3245277, 4936373, 1934470, 6218574, 55569480 ####[address] [address] Hemoglobin (Bld) [Mass/Vol] 15.4 g/dL Normal 13.5-17.5 [facility] Comment on above: Performed By: #### 1 6279892, 0535106, 3278468, 1642084, 24414901 ####[address] [address] Lymphocytes (Bld) [#/Vol] 1.3 E9/L Normal 1.0-4.0 [facility] Comment on above: Performed By: #### 1 9232327, 2795145, 5862164, 1961228, 06605450 ####[address] [address] Lymphocytes/100 WBC (Bld) 21.1 % Normal 14.0-50.0 [facility] Comment on above: Performed By: #### 1 2500677, 9372155, 2509332, 5402734, 36745059 ####[address] [address] MCH (RBC) [Entitic mass] 29.2 pg Normal 27.0-34.0 [facility] Comment on above: Performed By: #### 1 9190944, 4890440, 1702412, 7111980, 89580024 ####[address] [address] MCHC (RBC) [Mass/Vol] 33.5 g/dL Normal 31.4-36.0 [facility] Comment on above: Performed By: #### 1 8025701, 8953903, 1352950, 4510546, 70086998 ####[address] [address] MCV (RBC) [Entitic vol] 87.1 fL Normal 80.0-100.0 [facility] Comment on above: Performed By: #### 1 7134642, 7983717, 0674815, 5928064, 87096109 ####[address] [address] Monocytes (Bld) [#/Vol] 0.6 E9/L Normal 0.2-1.0 [facility] Comment on above: Performed By: #### 1 7723439, 9742376, 7314700, 4538143, 35636047 ####[address] [address] Neutrophils (Bld) [#/Vol] 3.9 E9/L Normal 2.0-7.5 [facility] Comment on above: Performed By: #### 1 6272795, 7879688, 0346245, 4957931, 61273291 ####[address] [place] [address] Neutrophils/100 WBC (Bld) 64.2 % Normal 36.0-75.0 [facility] Comment on above: Performed By: #### 1 1565758, 5814597, 9492585, 3357644, 92362131 ####[address] [address] Platelet mean volume (Bld) [Entitic vol] 9.5 fL Normal 6.4-10.8 [facility] Comment on above: Performed By: #### 1 3123140, 4471738, 0366606, 8022036, 82030617 ####[address] [address] Platelets (Bld) [#/Vol] 201.0 E9/L Normal 150.0-500.0 [facility] Comment on above: Performed By: #### 1 5381748, 5004931, 5668962, 1816028, 82498821 ####[address] [address] RBC (Bld) [#/Vol] 5.3 E12/L Normal 4.3-5.9 [facility] Comment on above: Performed By: #### 1 4525753, 8625167, 5648994, 1660645, 03044094 ####[address] [address] WBC corrected for nucl RBC Auto (Bld) [#/Vol] 6.1 E9/L Normal 4.0-11.0 [facility] Comment on above: Result Comment: Slid e review performed Performed By: #### 1 8875893, 6500200, 8247578, 5165891, 38726912 ####[address] [place] [address] CHEMISTRYOrdered By: SYSTEM SYSTEM on 03-18-2024 Albumin [Mass/Vol] 4.3 g/dL Normal 3.3 - 5.0 gm/dL R emisol Chem Albumin/Globulin [Mass ratio] 2.0 {ratio} Normal 1.1 - 2.2 Remisol Chem ALP [Catalytic activity/Vol] 58 [iU]/d Normal 21 - 98 Int._Unit/L Remisol Chem ALT No additional P-5'-P [Catalytic activity/Vol] 16 [iU]/d Normal 6 - 46 Int._Unit/L Remisol Chem Anion gap [Moles/Vol] 11 mmol/L Normal 6 - 16 mEq/L R emisol Chem AST [Catalytic activity/Vol] 20 [iU]/d Normal 5 - 43 Int._Unit/L Remisol Chem Bilirubin [Mass/Vol] 0.8 mg/dL Normal 0.0 - 1.1 mg/dL Remisol Chem Calcium [Mass/Vol] 8.9 mg/dL Normal 8.9 - 11. 1 mg/dL Remisol Chem Chloride [Moles/Vol] 108 mmol/L Normal 101 - 1 11 mmol/L Remisol [facility] Cholesterol [Mass/Vol] 135 mg/dL Normal 120 - 200 mg/dL Remisol Chem Cholesterol in HDL [Mass/Vol] 46 mg/dL Invalid Interpretation Code Remisol Chem Comment on above: Result Comment: '>= 60 LOW RISK' '<= 40 HIGH RISK' Cholesterol in LDL [Mass/Vol] 75 mg/dL Normal <=129mg/dL Remisol Chem Cholesterol in VLDL [Mass/Vol] 19 mg/dL Normal 7 - 40 mg/dL Remisol [facility] CO2 [Moles/Vol] 26 mmol/L Normal 21 - 31 mmol/L Remis ol Chem Creatinine [Mass/Vol] 1.1 mg/dL Normal 0.5 - 1.3 mg/d L Remisol Chem eGFR 71 mL/min/1.73 m2 Normal >=59mL/min /1.73 m2 Remisol Chem Globulin (S) [Mass/Vol] 2.2 g/dL Normal 1.4 - 4.0 gm/dL Remisol Chem Glucose [Mass/Vol] 105 mg/dL Normal 55 - 199 mg/dL Re misol Chem Potassium [Moles/Vol] 4.2 mmol/L Normal 3.5 - 5.3 mmol/L Remisol Chem Prostate specific Ag [Mass/Vol] 3.6 ng/mL High 0.1 - 3.5 ng/mL [facility] Comment on above: Interpretive Data: T he concentration of PSA determined by different manufacturers can vary due to differences in assay methods and reagent specificity. Values obtained from different assay methods cannot be used interchangeably. The methodology used for this result was chemiluminescence using [employer]'s Access [employer] PSA reagent. Protein [Mass/Vol] 6.5 g/dL Normal 6.0 - 7.8 gm/dL R emisol Chem Sodium [Moles/Vol] 141 mmol/L Normal 135 - 145 mmol/L Remisol Chem Triglyceride [Mass/Vol] 96 mg/dL Normal <=149mg/dL Remisol Chem Urea nitrogen [Mass/Vol] 20 mg/dL Normal 5 - 21 mg/dL Remisol Chem Urea nitrogen/Creatinine [Mass ratio] 18 mg/mg Normal 10 - 20 Remisol Chem CMPon 03-18-2024 Albumin [Mass/Vol] 4.3 g/dL Normal 3.3-5.0 [facility] Comment on above: Performed By: #### 1 7139515, 8161114, 3587911, 2399780, [id number] ####[facility] [address] [place] [address] Albumin/Globulin (S) [Mass conc ratio] 2.0 Normal 1.1-2.2 [facility] Comment on above: Performed By: #### 1 1153759, 8911940, 4742066, 4858396, 23494459 ####[facility] [id number] [place] [address] ALP [Catalytic activity/Vol] 58 Int._Unit/L Normal 21-98 [facility] Comment on above: Performed By: #### 1 [id number], 2959061, 4883932, 6510475, [id number] ####[facility] [address] [place] [address] ALT No additional P-5'-P [Catalytic activity/Vol] 16 Int._Unit/L Normal 6-46 [facility] Comment on above: Performed By: #### 1 [id number], 0203424, 9409224, 5750302, [id number] ####[facility] [address] [place] [address] Anion gap [Moles/Vol] 11 mmol/L Normal 6-16 [facility] Comment on above: Performed By: #### 1 [id number], 4568992, 8482331, 2315457, [id number] ####[facility] [address] [place] [address] AST [Catalytic activity/Vol] 20 Int._Unit/L Normal 5-43 [facility] Comment on above: Performed By: #### 1 [id number], 7408502, 7571294, 8921433, [id number] ####[facility] [address] [place] [address] Bilirubin [Mass/Vol] 0.8 mg/dL Normal 0.0-1.1 [facility] Comment on above: Performed By: #### 1 9092053, 6470631, 5931487, 6566460, 59873765 ####[facility] [address] [place] [address] Calcium [Mass/Vol] 8.9 mg/dL Normal 8.9-11.1 [facility] Comment on above: Performed By: #### 1 3102314, 7652534, 8907762, 0278001, 81264067 ####[facility] [address] [place] [address] Chloride [Moles/Vol] 108 mmol/L Normal 101-111 [facility] Comment on above: Performed By: #### 1 [id number], 1937574, 1875522, 0645484, 25497543 ####[facility] [address] [place] [address] CO2 [Moles/Vol] 26 mmol/L Normal 21-31 [facility] Comment on above: Performed By: #### 1 8703327, 5144030, 8154007, 4864202, 51207458 ####[facility] [address] [place] [address] Creatinine [Mass/Vol] 1.1 mg/dL Normal 0.5-1.3 [facility] Comment on above: Performed By: #### 1 8622412, 8841627, 2763757, 8353685, 73107424 ####[facility] [address] [place] [address] Globulin (S) [Mass/Vol] 2.2 g/dL Normal 1.4-4.0 [facility] Comment on above: Performed By: #### 1 4876561, 9970882, 6409541, 9410640, 13348640 ####[facility] [address] [place] [address] Glucose [Mass/Vol] 105 mg/dL Normal 55-199 [facility] Comment on above: Performed By: #### 1 1397328, 4857327, 3537627, 1416384, 40294221 ####[facility] [address] [place] [address] Potassium [Moles/Vol] 4.2 mmol/L Normal 3.5-5.3 [facility] Comment on above: Performed By: #### 1 0117656, 7284766, 6217361, 9969369, 25587483 ####[facility] [address] [place] [address] Protein [Mass/Vol] 6.5 g/dL Normal 6.0-7.8 [facility] Comment on above: Performed By: #### 1 [id number], 9138605, 1475961, 1931124, 21753987 ####[facility] [address] [place] [address] Sodium [Moles/Vol] 141 mmol/L Normal 135-145 [facility] Comment on above: Performed By: #### 1 4280607, 6784943, 6752434, 6093836, 96644478 ####[facility] [address] [place] [address] Urea nitrogen [Mass/Vol] 20 mg/dL Normal 5-21 [facility] Comment on above: Performed By: #### 1 3493668, 0918741, 7607747, 3589693, 28579649 ####[facility] [address] [place] [address] Urea nitrogen/Creatinine [Mass ratio] 18 No Units Normal 10-20 [facility] Comment on above: Performed By: #### 1 6355800, 5053942, 8675020, 9866175, 31965052 ####[facility] [address] [place] [address] Family Medicine Office/Clini c Noteon 03-18-2024 Family Medicine Office/Clinic Note HPI Staff Varun is a 73 year old male presenting to establish care would like yearly labs checked Establish Care: History: hypercholesterolemia, arthritis, Any previous diagnosis: History of seeing any specialist: When was your last doctors visit: year ago Last provider: Efrain Any recent labs: year ago Health Maintenance UTD: Colonoscopy: age 50's PSA: year go Acute: Current issues/complaints: Last Nov ER 2022 with UTI History of Present Illness - Here to establish care with me today. - Blood pressure is elevated. - Needs labs - Needs refills on meds. - No hx of high blood pressure. Review of Systems PHQ Score Initial Depression Screen Score: 0 SCORE Physical Exam Vitals & Measurements T: 37.1 ?C(Temporal Artery) HR: 72(Peripheral) RR: 16 BP: 162/80 SpO2: 97% HT: 70 in HT: 177.5 cm WT: 108.2 kg WT: 238.04 lb BMI: 34.34 General: alert, no acute distress ENMT: oral mucosa moist, Cardiovascular: regular rate and rhythm, normal peripheral perfusion Respiratory: Lungs CTA, respirations non labored Extremities: no deformity, no trauma Neurological: oriented x 4, LOC appropriate for age, CN II-XII intact, motor strength equal & normal bilaterally, speech normal Abdomen: Soft, Nontender, Non-distended, + BS Assessment/Plan 1. Hyperlipemia (E78.5: Hyperlipidemia, unspecified) - Continue on Crestor - Will recheck labs - Follow up once labs reviewed Ordered: Body Mass Index (BMI) documented 3008F CBC w/ Auto Diff Comprehensive Metabolic Panel Current tobacco non-user 1036F Depression Screening Negative 3352F Lipid Panel Most recent diastolic blood pressure 80-89 mm Hg 3079F Most recent systolic blood pressure >= 140 mm Hg 3077F Patient screen for fall risk: no falls in last year or 1 fall with no injury in last year 1101F PSA Screen, Total 2. Elevated blood pressure reading (R03.0: Elevated blood-pressure reading, without diagnosis of hypertension) - BP is elevated. - Will rechecked HTN today. Ordered: Body Mass Index (BMI) documented 3008F CBC w/ Auto Diff Comprehensive Metabolic Panel Current tobacco non-user 1036F Depression Screening Negative 3352F Lipid Panel Most recent diastolic blood pressure 80-89 mm Hg 3079F Most recent systolic blood pressure >= 140 mm Hg 3077F Patient screen for fall risk: no falls in last year or 1 fall with no injury in last year 1101F PSA Screen, Total 3. Osteoarthritis (M19.90: Unspecified osteoarthritis, unspecified site) - Continue meloxicam - Discussed behavioral changes - Follow up as needed Ordered: Body Mass Index (BMI) documented 3008F CBC w/ Auto Diff Comprehensive Metabolic Panel Current tobacco non-user 1036F Depression Screening Negative 3352F Lipid Panel Most recent diastolic blood pressure 80-89 mm Hg 3079F Most recent systolic blood pressure >= 140 mm Hg 3077F Patient screen for fall risk: no falls in last year or 1 fall with no injury in last year 1101F PSA Screen, Total 4. BPH with urinary obstruction (N40.1: Benign prostatic hyperplasia with lower urinary tract symptoms) - Continue on flomax. - Will recheck PSA - Labs ordered - Well controlled Ordered: Body Mass Index (BMI) documented 3008F CBC w/ Auto Diff Comprehensive Metabolic Panel Current tobacco non-user 1036F Depression Screening Negative 3352F Lipid Panel Most recent diastolic blood pressure 80-89 mm Hg 3079F Most recent systolic blood pressure >= 140 mm Hg 3077F Patient screen for fall risk: no falls in last year or 1 fall with no injury in last year 1101F PSA Screen, Total 5. Screening PSA (prostate specific antigen) (Z12.5: Encounter for screening for malignant neoplasm of prostate) - PSA ordered Ordered: CBC w/ Auto Diff Comprehensive Metabolic Panel Lipid Panel PSA Screen, Total 6. BMI 34.0-34.9,adult (Z68.34: Body mass index [BMI] 34.0-34.9, adult) - BMI education given - Diet and exercise advised Ordered: Body Mass Index (BMI) documented 3008F CBC w/ Auto Diff Comprehensive Metabolic Panel Current tobacco non-user 1036F Depression Screening Negative 3352F Lipid Panel Most recent diastolic blood pressure 80-89 mm Hg 3079F Most recent systolic blood pressure >= 140 mm Hg 3077F Patient screen for fall risk: no falls in last year or 1 fall with no injury in last year 1101F PSA Screen, Total 7. Class 1 obesity due to excess calories in adult (E66.09: Other obesity due to excess calories) - As above Ordered: Body Mass Index (BMI) documented 3008F CBC w/ Auto Diff Comprehensive Metabolic Panel Current tobacco non-user 1036F Depression Screening Negative 3352F Lipid Panel Most recent diastolic blood pressure 80-89 mm Hg 3079F Most recent systolic blood pressure >= 140 mm Hg 3077F Patient screen for fall risk: no falls in last year or 1 fall with no injury in last year 1101F PSA Screen, Total 8. Nonsmoker (Z78.9: Other specified health status (more content not included)... Normal [facility] Comment on above: Result Comment: Elec tronically Signed By: Chano ANTONIO, Antoine Hess\.br\Date and Time Signed: 03/18/24 07:32 EDT HEMATOLOGYOrdered By: SYSTEM SYSTEM on 03-18-2024 Basophils/100 WBC (Bld) 0.4 % Normal 0.0 - 2.0 % [facility] Basophils/Leukocytes Auto (Bld) [Pure # fraction] 0.0 E9/L Normal 0.0 - 0.2 E9/L [facility] Eosinophils (Bld) [#/Vol] 0.2 E9/L Normal 0.0 - 0.5 E9/L [facility] Eosinophils/100 WBC (Bld) 3.7 % Normal 0.0 - 8.0 % [facility] Erythrocyte distribution width (RBC) [Ratio] 13.1 % Normal 10.9 - 14.2 % [facility] Hematocrit (Bld) [Volume fraction] 45.8 % Normal 37.7 - 49.0 % [facility] Hemoglobin (Bld) [Mass/Vol] 15.4 g/dL Normal 13.5 - 17.5 gm/dL [facility] Lymphocytes (Bld) [#/Vol] 1.3 E9/L Normal 1.0 - 4.0 E9/L [facility] Lymphocytes/100 WBC (Bld) 21.1 % Normal 14.0 - 50.0 % [facility] MCH (RBC) [Entitic mass] 29.2 pg Normal 27.0 - 34.0 pg Rem[facility] MCHC (RBC) [Mass/Vol] 33.5 g/dL Normal 31.4 - 36.0 gm/dL [facility] MCV (RBC) [Entitic vol] 87.1 fL Normal 80.0 - 100.0 fL [facility] Monocytes (Bld) [#/Vol] 0.6 E9/L Normal 0.2 - 1.0 E9/L [facility] Monocytes/100 WBC (Bld) 10.6 % Normal 4.0 - 14.0 % [facility] Neutrophils (Bld) [#/Vol] 3.9 E9/L Normal 2.0 - 7.5 E9/L [facility] Neutrophils/100 WBC (Bld) 64.2 % Normal 36.0 - 75.0 % [facility] Platelet mean volume (Bld) [Entitic vol] 9.5 fL Normal 6.4 - 10.8 fL [facility] Platelets (Bld) [#/Vol] 201.0 E9/L Normal 150.0 - 500.0 E9/L [facility] RBC (Bld) [#/Vol] 5.3 E12/L Normal 4.3 - 5.9 E12/L Re misol Heme WBC corrected for nucl RBC Auto (Bld) [#/Vol] 6.1 E9/L Normal 4.0 - 11.0 E9/L [facility] Comment on above: Result Comment: Slid e review performed Lipid Panelon 03-18-2024 Cholesterol [Mass/Vol] 135 mg/dL Normal 120-200 [facility] Comment on above: Performed By: #### 1 [id number], 0627738, 9242691, 3006431, 46708379 ####[facility] [address] [place] [address] Cholesterol in HDL [Mass/Vol] 46 mg/dL Invalid Interpretation Code [facility] Comment on above: Result Comment: '>= 60 LOW RISK' '<= 40 HIGH RISK' Performed By: #### 1 [id number], 4707923, 7093877, 1316951, 73658327 ####[facility] [address] [place] [address] Cholesterol in LDL [Mass/Vol] 75 mg/dL Normal <=129 [facility] Comment on above: Performed By: #### 1 3873946, 1531888, 4964251, 5558890, 25797907 ####[facility] [address] [place] [address] Cholesterol in VLDL [Mass/Vol] 19 mg/dL Normal 7-40 [facility] Comment on above: Performed By: #### 1 1964584, 9193320, 5763542, 7352853, 19897932 ####[facility] [address] [place] [address] Triglyceride [Mass/Vol] 96 mg/dL Normal <=149 [facility] Comment on above: Performed By: #### 1 4575111, 7145140, 7672739, 8210042, 91552404 ####[facility] [address] [place] [address] PSA Screen, Totalon 03-18-20 Prostate specific Ag [Mass/Vol] 3.6 ng/mL High 0.1-3.5 [facility] Comment on above: Result Comment: The concentration of PSA determined by different manufacturers can vary due to differences in assay methods and reagent specificity. Values obtained from different assay methods cannot be used interchangeably. The methodology used for this result was chemiluminescence using [employer] Access [employer] PSA reagent. Performed By: #### 1 5288261, 6156934, 1848488, 3489267, 30722347 ####[facility] [address] [place] [address] Patient Educationon 03-18-20 24 Patient Education Nutrition BMI for Adults What is BMI? Body mass index (BMI) is a number that is calculated from a person's weight and height. BMI can help estimate how much of a person's weight is composed of fat. BMI does not measure body fat directly. Rather, it is an alternative to procedures that directly measure body fat, which can be difficult and expensive. BMI can help identify people who may be at higher risk for certain medical problems. What are BMI measurements used for? BMI is used as a screening tool to identify possible weight problems. It helps determine whether a person is obese, overweight, a healthy weight, or underweight. BMI is useful for: ? Identifying a weight problem that may be related to a medical condition or may increase the risk for medical problems. ? Promoting changes, such as changes in diet and exercise, to help reach a healthy weight. BMI screening can be repeated to see if these changes are working. How is BMI calculated? BMI involves measuring your weight in relation to your height. Both height and weight are measured, and the BMI is calculated from those numbers. This can be done either in [place] or metric measurements. Note that charts and online BMI calculators are available to help you find your BMI quickly and easily without having to do these calculations yourself. To calculate your BMI in [place] measurements: 1. Measure your weight in pounds (lb). 2. Multiply the number of pounds by 703. ? For example, for a person who weighs 180 lb, multiply that number by 703, which equals 126,540. 3. Measure your height in inches. Then multiply that number by itself to get a measurement called inches squared. ? For example, for a person who is 70 inches tall, the inches squared measurement is 70 inches x 70 inches, which equals 4,900 inches squared. 4. Divide the total from step 2 (number of lb x 703) by the total from step 3 (inches squared): 126,540 ? 4,900 = 25.8. This is your BMI. To calculate your BMI in metric measurements: 1. Measure your weight in kilograms (kg). 2. Measure your height in meters (m). Then multiply that number by itself to get a measurement called meters squared. ? For example, for a person who is 1.75 m tall, the meters squared measurement is 1.75 m x 1.75 m, which is equal to 3.1 meters squared. 3. Divide the number of kilograms (your weight) by the meters squared number. In this example: 70 ? 3.1 = 22.6. This is your BMI. What do the results mean? BMI charts are used to identify whether you are underweight, normal weight, overweight, or obese. The following guidelines will be used: ? Underweight: BMI less than 18.5. ? Normal weight: BMI between 18.5 and 24.9. ? Overweight: BMI between 25 and 29.9. ? Obese: BMI of 30 or above. Keep these notes in mind: ? Weight includes both fat and muscle, so someone with a muscular build, such as an athlete, may have a BMI that is higher than 24.9. In cases like these, BMI is not an accurate measure of body fat. ? To determine if excess body fat is the cause of a BMI of 25 or higher, further assessments may need to be done by a health care provider. ? BMI is usually interpreted in the same way for men and women. Where to find more information For more information about BMI, including tools to quickly calculate your BMI, go to these websites: ? Centers for Disease Control and Prevention: www.cdc.gov ? [employer]: www.heart.org ? National Heart, Lung, and Blood [place]: www.nhlbi.nih.gov Summary ? Body mass index (BMI) is a number that is calculated from a person's weight and height. ? BMI may help estimate how much of a person's weight is composed of fat. BMI can help identify those who may be at higher risk for certain medical problems. ? BMI can be measured using [place] measurements or metric measurements. ? BMI charts are used to identify whether you are underweight, normal weight, overweight, or obese. This information is not intended to replace advice given to you by your health care provider. Make sure you discuss any questions you have with your health care provider. Document Revised: 07/14/2020 Document Reviewed: 05/21/2020 [employer] Patient Education ? 2022 [employer] Normal [facility] eGFRon 03-18-2024 eGFR 71 mL/min/1.73 m2 Normal >=59 [facility] Comment on above: Order Comment: Order added by Discern Expert. Performed By: #### 1 [id number], 7287672, 1753730, 7023260, [id number] ####[facility] [address] [place] [address] Transfer Inon 03-03-2024 Transfer In [id number] .00TIFF Normal [facility] Transfer Inon 02-22-2024 Transfer In [id number] .00TIFF Normal [facility] Auth for Release of Medical Recordson 02-18-2024 Auth for Release of Medical Records [id number] .00TIFF Normal [facility] Auth for Release of Medical Recordson 02-12-2024 Auth for Release of Medical Records [id number] [facility] CBC AUTO DIFFon 04-19-2022 BASO # 0.0 103/ul Normal 0.0-0.1 [facility] Comment on above: Performed By: #### C BC #### [facility] [address] [place] [address] Dr. Chino Conteh Basophils/100 WBC (Bld) 0.3 % Normal 0.2-2.0 [facility] Comment on above: Performed By: #### C BC #### [facility] [address] [place] [address] Dr. Chino Conteh EO # 0.1 103/ul Normal 0.0-0.7 [facility] Comment on above: Performed By: #### C BC #### [facility] [address] [place] [address] Dr. Chino Conteh Eosinophils/100 WBC (Bld) 2.1 % Normal 0.9-7.0 [facility] Comment on above: Performed By: #### C BC #### [facility] [address] [place] [address] Dr. Chino Conteh Erythrocyte distribution width (RBC) [Ratio] 12.3 % Normal 11.0-15.0 [facility] Comment on above: Performed By: #### C BC #### [facility] [address] [place] [address] Dr. Chino Conteh Hematocrit (Bld) [Volume fraction] 47.2 % Normal 42.0-54.0 [facility] Comment on above: Performed By: #### C BC #### [facility] [address] [place] [address] Dr. Chino Conteh Hemoglobin (Bld) [Mass/Vol] 15.5 g/dL Normal 14.0-18.0 [facility] Comment on above: Performed By: #### C BC #### [facility] [address] [place] [address] Dr. Chino Conteh IG # 0.02 10e3/ul Normal 0.00-0.03 [facility] Comment on above: Performed By: #### C BC #### [facility] [address] [place] [address] Dr. Chino Conteh IG % 0.3 % Normal 0.0-0.5 [facility] Comment on above: Performed By: #### C BC #### [facility] [address] [place] [address] Dr. Chino Conteh LYMPH # 1.3 103/ul Normal 1.2-3.8 [facility] Comment on above: Performed By: #### C BC #### [facility] [address] [place] [address] Dr. Chino Conteh Lymphocytes/100 WBC (Bld) 21.5 % Normal 20.5-60.0 [facility] Comment on above: Performed By: #### C BC #### [facility] [address] [place] [address] Dr. Chino Conteh MANUAL DIFF REQ NO Normal [facility] Comment on above: Performed By: #### C BC #### [facility] [address] [place] [address] Dr. Chino Conteh MCH (RBC) [Entitic mass] 28.8 pg Normal 25.9-34.0 [facility] Comment on above: Performed By: #### C BC #### [facility] [address] [place] [address] Dr. Chino Conteh MCHC (RBC) [Mass/Vol] 32.8 g/dL Normal 29.9-35.2 [facility] Comment on above: Performed By: #### C BC #### [facility] [address] [place] [address] Dr. Chino Conteh MCV (RBC) [Entitic vol] 87.7 fL Normal 80.0-94.0 [facility] Comment on above: Performed By: #### C BC #### [facility] [address] [place] [address] Dr. Chino Conteh MONO # 0.6 103/ul Normal 0.3-0.8 [facility] Comment on above: Performed By: #### C BC #### [facility] [address] [place] [address] Dr. Chino Conteh Monocytes/100 WBC (Bld) 10.1 % Normal 1.7-12.0 [facility] Comment on above: Performed By: #### C BC #### [facility] [address] [place] [address] Dr. Chino Conteh NEUT # 4.0 103/ul Normal 1.4-6.5 [facility] Comment on above: Performed By: #### C BC #### [facility] [address] [place] [address] Dr. Chino Conteh Neutrophils/100 WBC (Bld) 65.7 % Normal 43.0-75.0 [facility] Comment on above: Performed By: #### C BC #### [facility] [address] [place] [address] Dr. Chino Conteh Platelet mean volume (Bld) [Entitic vol] 10.3 fL Normal 9.5-13.5 [facility] Comment on above: Performed By: #### C BC #### [facility] [address] [place] [address] Dr. Chino Conteh PLT 219 103/ul Normal 150-450 [facility] Comment on above: Performed By: #### C BC #### [facility] [address] [place] [address] Dr. Chino Conteh RBC 5.38 106/ul Normal 4.70-6.10 [facility] Comment on above: Performed By: #### C BC #### [facility] [address] [address] [address] Chino Conteh WBC 6.1 103/ul Normal 4.0-11.0 [facility] Comment on above: Performed By: #### C BC #### [facility] [address] [address] [address] Chino Conteh LIPID PROFILEon 04-19-2022 CHOL-HDL RATIO NORM SEE BELOW Normal [facility] Comment on above: Result Comment: 3.3 - 4.4 LOW RISK 4.4 - 7.1 AVERAGE RISK 7.1 - 11.0 MODERATE RISK >11.0 HIGH RISK Performed By: #### C MP, LIPID #### [facility] [address] [place] [address] Dr. Chino Conteh Cholesterol [Mass/Vol] 147 mg/dL Normal <=200 [facility] Comment on above: Performed By: #### C MP, LIPID #### [facility] [address] [place] [address] Dr. Chino Conteh Cholesterol in HDL [Mass/Vol] 52 mg/dL Normal 40-60 [facility] Comment on above: Performed By: #### C MP, LIPID #### [facility] [address] [place] [address] Dr. Chino Conteh Cholesterol in LDL [Mass/Vol] 80.0 mg/dL Normal [facility] Comment on above: Performed By: #### C MP, LIPID #### [facility] [address] [place] [address] Dr. Chino Conteh Cholesterol.total/Cho lesterol in HDL [Mass ratio] 2.8 {ratio} Normal [facility] Comment on above: Performed By: #### C MP, LIPID #### [facility] [address] [place] [address] Dr. Chino Conteh HDL NORMAL > or = 60 mg/dl - LO W CARDIOVASCULAR RISK <40 mg/dl - HIGH CARDIOVASCULAR RISK Normal [facility] Comment on above: Performed By: #### C MP, LIPID #### [facility] [address] [place] [address] Dr. Chino Conteh LDL CALC NORMAL SEE BELOW Normal [facility] Comment on above: Result Comment: <100 mg/dl OPTIMAL 100 - 129 mg/dl NEAR OR ABOVE OPTIMAL 130 - 159 mg/dl BORDERLINE HIGH 160 - 189 mg/dl HIGH >190 mg/dl VERY HIGH Performed By: #### C MP, LIPID #### [facility] [address] [address] [address] Chino Conteh Triglyceride [Mass/Vol] 75 mg/dL Normal <=150 [facility] Comment on above: Performed By: #### C MP, LIPID #### [facility] [address] [address] [address] Chino Conteh VLDL CALC 15.0 mg/dL Normal [facility] Comment on above: Performed By: #### C MP, LIPID #### [facility] [address] [address] [address] Chino Conteh PROF 14(COMP METB)on 022 Albumin [Mass/Vol] 4.0 g/dL Normal 3.4-5.0 [facility] Comment on above: Performed By: #### C MP, LIPID #### [facility] [address] [address] [address] Chino Conteh Albumin/Globulin [Mass ratio] 1.3 {ratio} Normal [facility] Comment on above: Performed By: #### C MP, LIPID #### [facility] [address] [address] [address] Chino Conteh ALP [Catalytic activity/Vol] 66 U/L Normal 46-116 [facility] Comment on above: Performed By: #### C MP, LIPID #### [facility] [address] [address] [address] Chino Conteh ALT [Catalytic activity/Vol] 33 U/L Normal 16-63 [facility] Comment on above: Performed By: #### C MP, LIPID #### [facility] [address] [address] [address] Chino Conteh Anion gap [Moles/Vol] 9.5 mmol/L Normal [facility] Comment on above: Performed By: #### C MP, LIPID #### [facility] [address] [address] [address] Chino Conteh AST [Catalytic activity/Vol] 33 U/L Normal 15-37 [facility] Comment on above: Performed By: #### C MP, LIPID #### [facility] [address] [address] [address] Chino Conteh Bilirubin [Mass/Vol] 1.1 mg/dL Critically high 0.2-1.0 [facility] Comment on above: Performed By: #### C MP, LIPID #### [facility] [address] [address] [address] Chino Conteh Calcium [Mass/Vol] 9.0 mg/dL Normal 8.5-10.1 [facility] Comment on above: Performed By: #### C MP, LIPID #### [facility] [address] [place] [address] Dr. Chino Conteh Chloride [Moles/Vol] 105 mmol/L Normal 98-107 [facility] Comment on above: Performed By: #### C MP, LIPID #### [facility] [address] [address] [address] Chino Conteh CO2 [Moles/Vol] 30.3 mmol/L Normal 21.0-32.0 [facility] Comment on above: Performed By: #### C MP, LIPID #### [facility] [address] [address] [address] Chino Conteh Creatinine [Mass/Vol] 1.09 mg/dL Normal 0.70-1.30 [facility] Comment on above: Performed By: #### C MP, LIPID #### [facility] [address] [place] [address] Dr. Chino Conteh EGFR-AF MONTENEGRIN >60 Normal >=60 [facility] Comment on above: Performed By: #### C MP, LIPID #### [facility] [address] [address] [address] Chino Conteh EGFR-NON AF MONTENEGRIN >60 Normal >=60 [facility] Comment on above: Performed By: #### C MP, LIPID #### [facility] [address] [address] [address] Chino Conteh Globulin (S) [Mass/Vol] 3.0 g/dL Normal [facility] Comment on above: Performed By: #### C MP, LIPID #### [facility] [address] [place] [address] Dr. Chino Conteh Glucose [Mass/Vol] 101 mg/dL Normal 74-106 [facility] Comment on above: Performed By: #### C MP, LIPID #### [facility] [address] [place] [address] Dr. Chino Conteh Potassium [Moles/Vol] 4.8 mmol/L Normal 3.5-5.1 [facility] Comment on above: Performed By: #### C MP, LIPID #### [facility] [address] [place] [address] Dr. Chino Conteh Protein [Mass/Vol] 7.0 g/dL Normal 6.4-8.2 [facility] Comment on above: Performed By: #### C MP, LIPID #### [facility] [address] [place] [address] Dr. Chino Conteh Sodium [Moles/Vol] 140 mmol/L Normal 136-145 [facility] Comment on above: Performed By: #### C MP, LIPID #### [facility] [address] [place] [address] Dr. Chino Conteh Urea nitrogen [Mass/Vol] 21.0 mg/dL Critically high 7.0-18.0 [facility] Comment on above: Performed By: #### C MP, LIPID #### [facility] [address] [place] [address] Dr. Chino Conteh Urea nitrogen/Creatinine [Mass ratio] 19.3 mg/mg Normal [facility] Comment on above: Performed By: #### C MP, LIPID #### [facility] [address] [place] [address] Dr. Chino Conteh CBC AUTO DIFFon 04-30-2021 BASO # 0.0 103/ul Normal 0.0-0.1 [facility] Comment on above: Performed By: #### C BC #### [facility] [address] [place], [place] [address] Barry Sonia Basophils/100 WBC (Bld) 0.3 % Normal 0.2-2.0 [facility] Comment on above: Performed By: #### C BC #### [facility] [address] [place], [place] [address] Barry Sonia EO # 0.2 103/ul Normal 0.0-0.7 [facility] Comment on above: Performed By: #### C BC #### [facility] [address] [place], [place] [id number] Barry Sonia Eosinophils/100 WBC (Bld) 3.3 % Normal 0.9-7.0 [facility] Comment on above: Performed By: #### C BC #### [facility] [address] [place] [address] Barry Sonia Erythrocyte distribution width (RBC) [Ratio] 12.2 % Normal 11.0-15.0 [facility] Comment on above: Performed By: #### C BC #### [facility] [address] [place], [place] [address] Barry Sonia Hematocrit (Bld) [Volume fraction] 45.3 % Normal 42.0-54.0 [facility] Comment on above: Performed By: #### C BC #### [facility] [address] [place], [place] [address] Barry Sonia Hemoglobin (Bld) [Mass/Vol] 15.1 g/dL Normal 14.0-18.0 [facility] Comment on above: Performed By: #### C BC #### [facility] [address] [place] [address] Barry Sonia IG # 0.02 10e3/ul Normal 0.00-0.03 [facility] Comment on above: Performed By: #### C BC #### [facility] [address] [place], [place] [address] Barry Sonia IG % 0.3 % Normal 0.0-0.5 [facility] Comment on above: Performed By: #### C BC #### [facility] [address] [place] [address] Barry Sonia LYMPH # 1.4 103/ul Normal 1.2-3.8 [facility] Comment on above: Performed By: #### C BC #### [facility] [address] [place], [place] [address] Barry Sonia Lymphocytes/100 WBC (Bld) 20.7 % Normal 20.5-60.0 [facility] Comment on above: Performed By: #### C BC #### [facility] [address] [place], [place] [address] Barry Sonia MANUAL DIFF REQ NO Normal [facility] Comment on above: Performed By: #### C BC #### [facility] [address] [place], [place] [address] Barry Sonia MCH (RBC) [Entitic mass] 28.9 pg Normal 25.9-34.0 [facility] Comment on above: Performed By: #### C BC #### [facility] [address] [place] [address] Barry Sonia MCHC (RBC) [Mass/Vol] 33.3 g/dL Normal 29.9-35.2 [facility] Comment on above: Performed By: #### C BC #### [facility] [address] [place] [address] Barry Sonia MCV (RBC) [Entitic vol] 86.8 fL Normal 80.0-94.0 [facility] Comment on above: Performed By: #### C BC #### [facility] [address] [place], [place] [address] Barry Sonia MONO # 0.7 103/ul Normal 0.3-0.8 [facility] Comment on above: Performed By: #### C BC #### [facility] [address] [place], [place] [address] Barry Sonia Monocytes/100 WBC (Bld) 9.6 % Normal 1.7-12.0 [facility] Comment on above: Performed By: #### C BC #### [facility] [address] [place] [address] Barry Sonia NEUT # 4.6 103/ul Normal 1.4-6.5 [facility] Comment on above: Performed By: #### C BC #### [facility] [address] [place], [place] [address] Barry Scott Neutrophils/100 WBC (Bld) 65.8 % Normal 43.0-75.0 [facility] Comment on above: Performed By: #### C BC #### [facility] [address] [place], [place] [address] aBrry Scott Platelet mean volume (Bld) [Entitic vol] 10.4 fL Normal 9.5-13.5 [facility] Comment on above: Performed By: #### C BC #### [facility] [address] [place] [address] Barry Scott PLT 226 103/ul Normal 150-450 [facility] Comment on above: Performed By: #### C BC #### [facility] [address] [place] [address] Barry Scott RBC 5.22 106/ul Normal 4.70-6.10 [facility] Comment on above: Performed By: #### C BC #### [facility] [address] [place], [place] [address] Barry Scott WBC 7.0 103/ul Normal 4.0-11.0 [facility] Comment on above: Performed By: #### C BC #### [facility] [address] [place], [place] [address] Barry Scott LIPID PROFILEon 04-30-2021 CHOL-HDL RATIO NORM SEE BELOW Normal [facility] Comment on above: Result Comment: 3.3 - 4.4 LOW RISK 4.4 - 7.1 AVERAGE RISK 7.1 - 11.0 MODERATE RISK >11.0 HIGH RISK Performed By: #### C MP, PSAD, LIPID #### [facility] [address] [place], [place] [address] Barry Scott Cholesterol [Mass/Vol] 148 mg/dL Normal <=200 [facility] Comment on above: Performed By: #### C MP, PSAD, LIPID #### [facility] [address] [id number] Barry Sonia Cholesterol in HDL [Mass/Vol] 56 mg/dL Normal [facility] Comment on above: Performed By: #### C JAI HENDRIX, LIPID #### [facility] [address] [id number] Barry Sonia Cholesterol in LDL [Mass/Vol] 79.0 mg/dL Normal [facility] Comment on above: Performed By: #### C RUMA PSAChanning, LIPID #### [facility] [address] [id number] Barry Sonia Cholesterol.total/Cho lesterol in HDL [Mass ratio] 2.6 {ratio} Normal [facility] Comment on above: Performed By: #### C RUMA PSAChanning, LIPID #### [facility] [address] [id number] Barry Sonia HDL NORMAL > or = 60 mg/dl - LO W CARDIOVASCULAR RISK <40 mg/dl - HIGH CARDIOVASCULAR RISK Normal [facility] Comment on above: Performed By: #### C RUMA PSAD, LIPID #### [facility] [address] [id number] Barry Sonia LDL CALC NORMAL SEE BELOW Normal [facility] Comment on above: Result Comment: <100 mg/dl OPTIMAL 100 - 129 mg/dl NEAR OR ABOVE OPTIMAL 130 - 159 mg/dl BORDERLINE HIGH 160 - 189 mg/dl HIGH >190 mg/dl VERY HIGH Performed By: #### C RUMA PSAD, LIPID #### [facility] [address] [id number] Barry Sonia Triglyceride [Mass/Vol] 65 mg/dL Normal <=150 [facility] Comment on above: Performed By: #### C RUMA PSAD, LIPID #### [facility] [address] [phone] Barry Sonia VLDL CALC 13.0 mg/dL Normal [facility] Comment on above: Performed By: #### C RUMA PSAD, LIPID #### [facility] [address] [id number] Barry Sonia PROF 14(COMP METB)on 06-26-2 021 Albumin [Mass/Vol] 3.6 g/dL Normal 3.5-5.0 [facility] Comment on above: Performed By: #### C MP, PSAD, LIPID #### [facility] [address] [id number] Barry Sonia Albumin/Globulin [Mass ratio] 1.1 {ratio} Normal [facility] Comment on above: Performed By: #### C MP, PSAD, LIPID #### [facility] [address] [address] Barry Sonia ALP [Catalytic activity/Vol] 66 U/L Normal 38-126 [facility] Comment on above: Performed By: #### C MP, PSAD, LIPID #### [facility] [address] [address] Barry Sonia ALT [Catalytic activity/Vol] 28 U/L Normal 21-72 [facility] Comment on above: Performed By: #### C MP, PSAD, LIPID #### [facility] [address] [address] Barry Sonia Anion gap [Moles/Vol] 11.9 mmol/L Normal [facility] Comment on above: Performed By: #### C MP PSAD, LIPID #### [facility] [address] [place] [address] Barry Sonia AST [Catalytic activity/Vol] 22 U/L Normal 17-59 [facility] Comment on above: Performed By: #### C MP, PSAD, LIPID #### [facility] [address] [address] Barry Sonia Bilirubin [Mass/Vol] 0.7 mg/dL Normal 0.2-1.3 [facility] Comment on above: Performed By: #### C MP, PSAD, LIPID #### [facility] [address] [address] Barry Sonia Calcium [Mass/Vol] 8.4 mg/dL Normal 8.4-10.2 [facility] Comment on above: Performed By: #### C MP, PSAD, LIPID #### [facility] [address] [address] Barry Sonia Chloride [Moles/Vol] 108 mmol/L Critically high 98-107 [facility] Comment on above: Performed By: #### C RUMA PSAD, LIPID #### [facility] [address] [address] Barry Sonia CO2 [Moles/Vol] 27.3 mmol/L Normal 22.0-30.0 [facility] Comment on above: Performed By: #### C MP PSAD, LIPID #### [facility] [address] [address] Barry Sonia EGFR-AF MONTENEGRIN >60 Normal >=60 [facility] Comment on above: Performed By: #### C RUMA PSAD, LIPID #### [facility] [address] [address] Barry Sonia EGFR-NON AF MONTENEGRIN >60 Normal >=60 [facility] Comment on above: Performed By: #### C RUMA PSAD, LIPID #### [facility] [address] [address] Barry Sonia Globulin (S) [Mass/Vol] 3.2 g/dL Normal [facility] Comment on above: Performed By: #### C RUMA PSAD, LIPID #### [facility] [address] [address] Barry Sonia Glucose [Mass/Vol] 105 mg/dL Normal 74-106 [facility] Comment on above: Performed By: #### C RUMA, PSAD, LIPID #### [facility] [address] [address] Barry Sonia Potassium [Moles/Vol] 4.2 mmol/L Normal 3.4-5.0 [facility] Comment on above: Performed By: #### C RUMA PSAD, LIPID #### [facility] [address] [address] Barry Sonia Protein [Mass/Vol] 6.8 g/dL Normal 6.1-8.2 [facility] Comment on above: Performed By: #### C RUMA, PSAD, LIPID #### [facility] [address] [place], [place] [address] Barry Sonia Sodium [Moles/Vol] 143 mmol/L Normal 137-145 [facility] Comment on above: Performed By: #### C MP, PSAD, LIPID #### [facility] [address] [place], [place] [address] Barry Sonia Urea nitrogen [Mass/Vol] 16.0 mg/dL Normal 9.0-20.0 [facility] Comment on above: Performed By: #### C MP, PSAD, LIPID #### [facility] [address] [place], [place] [address] Barry Sonia Urea nitrogen/Creatinine [Mass ratio] 17.0 mg/mg Normal [facility] Comment on above: Performed By: #### C MP, PSAD, LIPID #### [facility] [address] [place], [place] [address] Barry Sonia Vital Signs Date Time Vital Sign Value Performing Clinician Facility 06-17-2024 08:14-0400 Blood Pressure Location JORGE KENNEY [facility] 06-17-2024 08:14-0400 Body temperature 97.88 [degF] JORGE WYLIERY [facility] 06-17-2024 08:14-0400 Diastolic blood pressure 72 mm[Hg] JORGE KENNEY [facility] 06-17-2024 08:14-0400 Heart rate 73 /min JORGE WYLIERY [facility] 06-17-2024 08:14-0400 Respiratory rate 16 /min JORGE KENNEY [facility] 06-17-2024 08:14-0400 Systolic blood pressure 134 mm[Hg] JORGE KENNEY [facility] 06-12-2024 09:10-0400 Blood Pressure Location JORGE KENNEY [facility] 06-12-2024 09:10-0400 Diastolic blood pressure 74 mm[Hg] JORGE WYLIERY [facility] 06-12-2024 09:10-0400 Heart rate 85 /min JORGE KENNEY [facility] 06-12-2024 09:10-0400 Respiratory rate 16 /min JORGE KENNEY [facility] 06-12-2024 09:10-0400 Systolic blood pressure 121 mm[Hg] JORGE KENNEY [facility] Encounters Encounter Date Encounter Type Care Provider Facility Start: 10-05-2025 ambulatory Antoine Madden Facility :[facility] Start: 06-17-2024 End: 06-17-2024 Lab Drop off JORGE KENNEY [facility] Start: 06-17-2024 End: 06-17-2024 Patient encounter procedure JORGE KENNEY [facility] Start: 06-12-2024 End: 06-12-2024 Lab Drop off JORGE WYLIERY [facility] Start: 06-12-2024 End: 06-12-2024 ambulatory PA-C JORGE KENNEY [place] Start: 06-12-2024 End: 06-12-2024 ambulatory PA-C JORGE KENNEY Facility:[facility] Start: 06-12-2024 End: 06-12-2024 Patient encounter procedure JORGE KENNEY [facility] Start: 04-22-2024 End: 04-22-2024 ambulatory Antoine Madden Facility:[facility] Start: 03-18-2024 End: 03-18-2024 Lab Drop off Antoine Madden [facility] Start: 03-18-2024 End: 03-18-2024 ambulatory Antoine Madden [facility] Start: 02-12-2024 ambulatory Antoine Madden Facility:[facility] Start: 04-19-2022 End: 04-20-[address] SARI CASTANO Facility: Start: 04-30-2021 End: 05-01-[address] SARI CASTANO Facility: Procedures Date Procedure Procedure Detail Performing Clinician Start: 04-19-[address] PARVEEN CASTANO Comment on above: Performed By: #### P SAD #### [facility] [address] [address] [address] Chino Conteh Start: 04-30-[address] PARVEEN CASTANO Comment on above: Performed By: #### C MP, PSAD, LIPID #### [facility] [address] [address] Barry Madden Comment on above: in his 50's Immunizations Immunization Date Immunization Notes Care Provider Fa cili 10-14-2022 SARS-CoV-2 (COVID-19 ) [id number] Antoine Madden [facility] 10-13-2022 influenza virus vaccine, unspecified formulation Antoine Madden [facility] 03-14-2022 SARS-CoV-2 mRNA (wbhtmukfkon-uuhi-werrt se) vaccine Antoine Madden [facility] 09-27-2021 influenza virus vaccine, unspecified formulation Antoine Madden [facility] 08-20-2021 SARS-CoV-2 (COVID-19 ) mRNA BNT-162b2 wilfredo Madden [facility] 01-12-2021 SARS-CoV-2 (COVID-19 ) mRNA BNT-162a0 wilfredo Madden [facility] Comment on above: Result Comment: 2023: [id number] 12-21-2020 SARS-CoV-2 (COVID-19 ) mRNA BNT-162v8 wilfredo Madden [facility] Comment on above: Result Comment: 2023: [id number] Payers Date Payer Category Payer Medicare [id number] 1958 Unknown [id number] 1950 Unknown [id number] 2.16.84 [id number] 1950 Unknown [id number] 2.16.84 [id number] 1950 Unknown [id number] 2.16.8 [id number] 1950 Unknown [id number] 2.16.8 [id number] 1950 Unknown [id number] 2.16.8 [id number] 1950 Unknown [id number] 2.16.8 [id number] 1950 Unknown [id number] 2.16.8 [id number] 1950 Unknown [id number] 2.16.8 [id number] 1950 Unknown [id number] 2.16.8 [id number] Social History Date Type Detail Facility Start: 03-18-2024 End: 06-17-2024 Tobacco smoking status Never smoked tobacco (finding) [facility] Tobacco smoking status Never [facility] Sex Assigned At Male [facility] Functional Status Date Assessment Result Facility 06-17-2024 Functional Status N/A [facility] 06-12-2024 Functional Status N/A [facility] Clinical Notes 06-12-2024 to 06-17-2024 LaboratoryLaboratoryLaboratoryLaboratory Note Date & Type Note Facility 06-17-2024 Hospital Discharge instructions Patient Education 06/17/2024 08:31:41 Cystoscopy Cystoscopy Cystoscopy is a procedure that is used to help diagnose and sometimes treat conditions that affect the lower urinary tract. The lower urinary tract includes the bladder and the urethra. The urethra is the tube that drains urine from the bladder. Cystoscopy is done using a thin, tube-shaped instrument with a light and camera at the end (cystoscope). The cystoscope may be hard or flexible, depending on the goal of the procedure. The cystoscope is inserted through the urethra, into the bladder. Cystoscopy may be recommended if you have: Urinary tract infections that keep coming back. Blood in the urine (hematuria). An inability to control when you urinate (urinary incontinence) or an overactive bladder. Unusual cells found in a urine sample. A blockage in the urethra, such as a urinary stone. Painful urination. An abnormality in the bladder found during an intravenous pyelogram (IVP) or CT scan. Cystoscopy may also be done to remove a sample of tissue to be examined under a microscope (biopsy). Tell a health care provider about: Any allergies you have. All medicines you are taking, including vitamins, herbs, eye drops, creams, and mhko-prt-dokgvdm medicines. Any problems you or family members have had with anesthetic medicines. Any blood disorders you have. Any surgeries you have had. Any medical conditions you have. Whether you are or may be . What are the risks? Generally, this is a safe procedure. However, problems may occur, including: Infection. Bleeding. Allergic reactions to medicines. Damage to other structures or organs. What happens before the procedure? Medicines Ask your health care provider about: Changing or stopping your regular medicines. This is especially important if you are taking diabetes medicines or blood thinners. Taking medicines such as aspirin and ibuprofen. These medicines can thin your blood. Do not take these medicines unless your health care provider tells you to take them. Taking eswr-ibd-wthfwup medicines, vitamins, herbs, and supplements. Tests You may have an exam or testing, such as: X-rays of the bladder, urethra, or kidneys. CT scan of the abdomen or pelvis. Urine tests to check for signs of infection. General instructions Follow instructions from your health care provider about eating or drinking restrictions. Ask your health care provider what steps will be taken to help prevent infection. These steps may include: ?Washing skin with a germ-killing soap. ?Taking antibiotic medicine. Plan to have a responsible adult take you home from the hospital or clinic. What happens during the procedure? You will be given one or more of the following: ?A medicine to help you relax (sedative). ?A medicine to numb the area (local anesthetic). The area around the opening of your urethra will be cleaned. The cystoscope will be passed through your urethra into your bladder. Germ-free (sterile) fluid will flow through the cystoscope to fill your bladder. The fluid will stretch your bladder so that your health care provider can clearly examine your bladder boyd. Your doctor will look at the urethra and bladder. Your doctor may take a biopsy or remove stones. The cystoscope will be removed, and your bladder will be emptied. The procedure may vary among health care providers and hospitals. What can I expect after the procedure? After the procedure, it is common to have: Some soreness or pain in your abdomen and urethra. Urinary symptoms. These include: ?Mild pain or burning when you urinate. Pain should stop within a few minutes after you urinate. This may last for up to 1 week. ?A small amount of blood in your urine for several days. ?Feeling like you need to urinate but producing only a small amount of urine. Follow these instructions at home: Medicines Take lvqs-cvj-viajohd and prescription medicines only as told by your health care provider. If you were prescribed an antibiotic medicine, take it as told by your health care provider. Do not stop taking the antibiotic even if you start to feel better. General instructions Return to your normal activities as told by your health care provider. Ask your health care provider what activities are safe for you. If you were given a sedative during the procedure, it can affect you for several hours. Do not drive or operate machinery until your health care provider says that it is safe. Watch for any blood in your urine. If the amount of blood in your urine increases, call your health care provider. Follow instructions from your health care provider about eating or drinking restrictions. If a tissue sample was removed for testing (biopsy) during your procedure, it is up to you to get your test results. Ask your health care provider, or the department that is doing the test, when your results will be ready. Drink enough fluid to keep your urine pale yellow. Keep all follow-up visits. This is important. Contact a health care provider if: You have pain that gets worse or does not get better with medicine, especially pain when you urinate. You have trouble urinating. You have more blood in your urine. Get help right away if: You have blood clots in your urine. You have abdominal pain. You have a fever or chills. You are unable to urinate. Summary Cystoscopy is a procedure that is used to help diagnose and sometimes treat conditions that affect the lower urinary tract. Cystoscopy is done using a thin, tube-shaped instrument with a light and camera at the end. After the procedure, it is common to have some soreness or pain in your abdomen and urethra. Watch for any blood in your urine. If the amount of blood in your urine increases, call your health care provider. If you were prescribed an antibiotic medicine, take it as told by your health care provider. Do not stop taking the antibiotic even if you start to feel better. This information is not intended to replace advice given to you by your health care provider. Make sure you discuss any questions you have with your health care provider. Document Revised: 07/05/2022 Document Reviewed: 06/03/2021 [employer] Patient Education 2022 [employer]. 06/17/2024 08:31:38 Hematuria, Adult Hematuria, Adult Hematuria is blood in the urine. Blood may be visible in the urine, or it may be identified with a test. This condition can be caused by infections of the bladder, urethra, kidney, or prostate. Other possible causes include: Kidney stones. Cancer of the urinary tract. Too much calcium in the urine. Conditions that are passed from parent to child (inherited conditions). Exercise that requires a lot of energy. Infections can usually be treated with medicine, and a kidney stone usually will pass through your urine. If neither of these is the cause of your hematuria, more tests may be needed to identify the cause of your symptoms. It is very important to tell your health care provider about any blood in your urine, even if it is painless or the blood stops without treatment. Blood in the urine, when it happens and then stops and then happens again, can be a symptom of a very serious condition, including cancer. There is no pain in the initial stages of many urinary cancers. Follow these instructions at home: Medicines Take adft-liq-xthyzfx and prescription medicines only as told by your health care provider. If you were prescribed an antibiotic medicine, take it as told by your health care provider. Do not stop taking the antibiotic even if you start to feel better. Eating and drinking Drink enough fluid to keep your urine pale yellow. It is recommended that you drink 3 4 quarts (2.8 3.8 L) a day. If you have been diagnosed with an infection, drinking cranberry juice in addition to large amounts of water is recommended. Avoid caffeine, tea, and carbonated beverages. These tend to irritate the bladder. Avoid alcohol because it may irritate the prostate (in males). General instructions If you have been diagnosed with a kidney stone, follow your health care provider's instructions about straining your urine to catch the stone. Empty your bladder often. Avoid holding urine for long periods of time. If you are female: ?After a bowel movement, wipe from front to back and use each piece of toilet paper only once. ?Empty your bladder before and after sex. Pay attention to any changes in your symptoms. Tell your health care provider about any changes or any new symptoms. It is up to you to get the results of any tests. Ask your health care provider, or the department that is doing the test, when your results will be ready. Keep all follow-up visits. This is important. Contact a health care provider if: You develop back pain. You have a fever or chills. You have nausea or vomiting. Your symptoms do not improve after 3 days. Your symptoms get worse. Get help right away if: You develop severe vomiting and are unable to take medicine without vomiting. You develop severe pain in your back or abdomen even though you are taking medicine. You pass a large amount of blood in your urine. You pass blood clots in your urine. You feel very weak or like you might faint. You faint. Summary Hematuria is blood in the urine. It has many possible causes. It is very important that you tell your health care provider about any blood in your urine, even if it is painless or the blood stops without treatment. Take isxn-vbo-hvgckrl and prescription medicines only as told by your health care provider. Drink enough fluid to keep your urine pale yellow. This information is not intended to replace advice given to you by your health care provider. Make sure you discuss any questions you have with your health care provider. Document Revised: 06/22/2021 Document Reviewed: 06/22/2021 [employer] Patient Education 2022 [employer]. Follow Up Care 06/16/2024 16:04:40 With:ANNE MARIE RUTLEDGE, JORGE Iniguez, URL Address: [address] [place] [address]. [place] [phone] When: Unknown [facility] 06-12-2024 Hospital Discharge instructions Patient Education 06/12/2024 09:50:05 Benign Prostatic Hyperplasia Benign Prostatic Hyperplasia Benign prostatic hyperplasia (BPH) is an enlarged prostate gland that is caused by the normal aging process. The prostate may get bigger as a man gets older. The condition is not caused by cancer. The prostate is a walnut-sized gland that is involved in the production of semen. It is located in front of the rectum and below the bladder. The bladder stores urine. The urethra carries stored urine out of the body. An enlarged prostate can press on the urethra. This can make it harder to pass urine. The buildup of urine in the bladder can cause infection. Back pressure and infection may progress to bladder damage and kidney (renal) failure. What are the causes? This condition is part of the normal aging process. However, not all men develop problems from this condition. If the prostate enlarges away from the urethra, urine flow will not be blocked. If it enlarges toward the urethra and compresses it, there will be problems passing urine. What increases the risk? This condition is more likely to develop in men older than 50 years. What are the signs or symptoms? Symptoms of this condition include: Getting up often during the night to urinate. Needing to urinate frequently during the day. Difficulty starting urine flow. Decrease in size and strength of your urine stream. Leaking (dribbling) after urinating. Inability to pass urine. This needs immediate treatment. Inability to completely empty your bladder. Pain when you pass urine. This is more common if there is also an infection. Urinary tract infection (UTI). How is this diagnosed? This condition is diagnosed based on your medical history, a physical exam, and your symptoms. Tests will also be done, such as: A post-void bladder scan. This measures any amount of urine that may remain in your bladder after you finish urinating. A digital rectal exam. In a rectal exam, your health care provider checks your prostate by putting a lubricated, gloved finger into your rectum to feel the back of your prostate gland. This exam detects the size of your gland and any abnormal lumps or growths. An exam of your urine (urinalysis). A prostate specific antigen (PSA) screening. This is a blood test used to screen for prostate cancer. An ultrasound. This test uses sound waves to electronically produce a picture of your prostate gland. Your health care provider may refer you to a specialist in kidney and prostate diseases (urologist). How is this treated? Once symptoms begin, your health care provider will monitor your condition (active surveillance or watchful waiting). Treatment for this condition will depend on the severity of your condition. Treatment may include: Observation and yearly exams. This may be the only treatment needed if your condition and symptoms are mild. Medicines to relieve your symptoms, including: ?Medicines to shrink the prostate. ?Medicines to relax the muscle of the prostate. Surgery in severe cases. Surgery may include: ?Prostatectomy. In this procedure, the prostate tissue is removed completely through an open incision or with a laparoscope or robotics. ?Transurethral resection of the prostate (TURP). In this procedure, a tool is inserted through the opening at the tip of the penis (urethra). It is used to cut away tissue of the inner core of the prostate. The pieces are removed through the same opening of the penis. This removes the blockage. ?Transurethral incision (TUIP). In this procedure, small cuts are made in the prostate. This lessens the prostate's pressure on the urethra. ?Transurethral microwave thermotherapy (TUMT). This procedure uses microwaves to create heat. The heat destroys and removes a small amount of prostate tissue. ?Transurethral needle ablation (TUNA). This procedure uses radio frequencies to destroy and remove a small amount of prostate tissue. ?Interstitial laser coagulation (ILC). This procedure uses a laser to destroy and remove a small amount of prostate tissue. ?Transurethral electrovaporization (TUVP). This procedure uses electrodes to destroy and remove a small amount of prostate tissue. ?Prostatic urethral lift. This procedure inserts an implant to push the lobes of the prostate away from the urethra. Follow these instructions at home: Take lngu-fkj-tbnwilm and prescription medicines only as told by your health care provider. Monitor your symptoms for any changes. Contact your health care provider with any changes. Avoid drinking large amounts of liquid before going to bed or out in public. Avoid or reduce how much caffeine or alcohol you drink. Give yourself time when you urinate. Keep all follow-up visits. This is important. Contact a health care provider if: You have unexplained back pain. Your symptoms do not get better with treatment. You develop side effects from the medicine you are taking. Your urine becomes very dark or has a bad smell. Your lower abdomen becomes distended and you have trouble passing urine. Get help right away if: You have a fever or chills. You suddenly cannot urinate. You feel light-headed or very dizzy, or you faint. There are large amounts of blood or clots in your urine. Your urinary problems become hard to manage. You develop moderate to severe low back or flank pain. The flank is the side of your body between the ribs and the hip. These symptoms may be an emergency. Get help right away. Call 911. Do not wait to see if the symptoms will go away. Do not drive yourself to the hospital. Summary Benign prostatic hyperplasia (BPH) is an enlarged prostate that is caused by the normal aging process. It is not caused by cancer. An enlarged prostate can press on the urethra. This can make it hard to pass urine. This condition is more likely to develop in men older than 50 years. Get help right away if you suddenly cannot urinate. This information is not intended to replace advice given to you by your health care provider. Make sure you discuss any questions you have with your health care provider. Document Revised: 05/10/2022 Document Reviewed: 05/10/2022 [employer] Patient Education 2022 [employer]. 06/12/2024 09:50:04 Prostate Cancer Screening Prostate Cancer Screening Prostate cancer screening is testing that is done to check for the presence of prostate cancer in men. The prostate gland is a walnut-sized gland that is located below the bladder and in front of the rectum in males. The function of the prostate is to add fluid to semen during ejaculation. Prostate cancer is one of the most common types of cancer in men. Who should have prostate cancer screening? Screening recommendations vary based on age and other risk factors, as well as between the professional organizations who make the recommendations. In general, screening is recommended if: You are age 50 to 70 and have an average risk for prostate cancer. You should talk with your health care provider about your need for screening and how often screening should be done. Because most prostate cancers are slow growing and will not cause , screening in this age group is generally reserved for men who have a 10- to 15-year life expectancy. You are younger than age 50, and you have these risk factors: ?Having a father, brother, or uncle who has been diagnosed with prostate cancer. The risk is higher if your family member's cancer occurred at an early age or if you have multiple family members with prostate cancer at an early age. ?Being a male who is Black or is of Raje[place] or sub-Saharan descent. In general, screening is not recommended if: You are younger than age 40. You are between the ages of 40 and 49 and you have no risk factors. You are 70 years of age or older. At this age, the risks that screening can cause are greater than the benefits that it may provide. If you are at high risk for prostate cancer, your health care provider may recommend that you have screenings more often or that you start screening at a younger age. How is screening for prostate cancer done? The recommended prostate cancer screening test is a blood test called the prostate-specific antigen (PSA) test. PSA is a protein that is made in the prostate. As you age, your prostate naturally produces more PSA. Abnormally high PSA levels may be caused by: Prostate cancer. An enlarged prostate that is not caused by cancer (benign prostatic hyperplasia, or BPH). This condition is very common in older men. A prostate gland infection (prostatitis) or urinary tract infection. Certain medicines such as male hormones (like testosterone) or other medicines that raise testosterone levels. A rectal exam may be done as part of prostate cancer screening to help provide information about the size of your prostate gland. When a rectal exam is performed, it should be done after the PSA level is drawn to avoid any effect on the results. Depending on the PSA results, you may need more tests, such as: A physical exam to check the size of your prostate gland, if not done as part of screening. Blood and imaging tests. A procedure to remove tissue samples from your prostate gland for testing (biopsy). This is the only way to know for certain if you have prostate cancer. What are the benefits of prostate cancer screening? Screening can help to identify cancer at an early stage, before symptoms start and when the cancer can be treated more easily. There is a small chance that screening may lower your risk of dying from prostate cancer. The chance is small because prostate cancer is a slow-growing cancer, and most men with prostate cancer from a different cause. What are the risks of prostate cancer screening? The main risk of prostate cancer screening is diagnosing and treating prostate cancer that would never have caused any symptoms or problems. This is called overdiagnosisand overtreatment. PSA screening cannot tell you if your PSA is high due to cancer or a different cause. A prostate biopsy is the only procedure to diagnose prostate cancer. Even the results of a biopsy may not tell you if your cancer needs to be treated. Slow-growing prostate cancer may not need any treatment other than monitoring, so diagnosing and treating it may cause unnecessary stress or other side effects. Questions to ask your health care provider When should I start prostate cancer screening? What is my risk for prostate cancer? How often do I need screening? What type of screening tests do I need? How do I get my test results? What do my results mean? Do I need treatment? Where to find more information [employer]: www.cancer.org [employer]: www.auanet.org Contact a health care provider if: You have difficulty urinating. You have pain when you urinate or ejaculate. You have blood in your urine or semen. You have pain in your back or in the area of your prostate. Summary Prostate cancer is a common type of cancer in men. The prostate gland is located below the bladder and in front of the rectum. This gland adds fluid to semen during ejaculation. Prostate cancer screening may identify cancer at an early stage, when the cancer can be treated more easily and is less likely to have spread to other areas of the body. The prostate-specific antigen (PSA) test is the recommended screening test for prostate cancer, but it has associated risks. Discuss the risks and benefits of prostate cancer screening with your health care provider. If you are age 70 or older, the risks that screening can cause are greater than the benefits that it may provide. This information is not intended to replace advice given to you by your health care provider. Make sure you discuss any questions you have with your health care provider. Document Revised: 04/17/2022 Document Reviewed: 04/17/2022 [employer] Patient Education 2022 [employer]. Follow Up Care 04/01/2024 15:00:25 With:ANNE MARIE RUTLEDGE, JORGE Iniguez, URL Address: [address] [place] [address]. [place] [address] When: Unknown [facility] 06-12-2024 Note Urology Office/Clini c Note Chief Complaint Referral *Elevated PSA HPI Staff New pt referred by Dr. Antoine Madden for elevated PSA. Never seen in our office before (verified on [employer]). Does take Tamsulosin 0.4mg qd therapy from PCP. Did have a cousin pass away from Prostate Cancer. Occasional weak stream. The longer he holds off on urinating, the longer it takes to get stream started when he does go to restroom. Occasional pain with urination. Occasionally does not feel empty, does not seem right . Sometimes squeezes penis at end of urination, at more urine comes out. PSA 09/07/16 - 1.98 07/31/18 - 3.14 04/30/21 - 3.09 04/19/22 - 3.48 04/19/23 - 3.83 03/18/24 - 3.6 History of Present Illness Tests reviewed: reviewed UA, PSAs, and referral records. I have reviewed the previous health record information and history for this patient from Dr. Antoine Madden. I have reviewed and verified the staff HPI to be accurate for this encounter. Review of Systems PHQ Score Initial Depression Screen Score: 0 SCORE no fever, chills, malaise, myalgia. no rash/lesions. no chest pain, palpitations, or SOB. no abdominal pain, nausea, vomiting. no unilateral calf swelling, redness, pain Physical Exam Vitals & Measurements HR: 85(Peripheral) RR: 16 BP: 121/74 HT: 71 in HT: 180 cm WT: 108 kg WT: 237.6 lb BMI: 33.33 General: nontoxic, NAD Mouth: moist mucosa Lungs: normal respiratory effort Cardio: regular rate, good distal perfusion Abdomen: nondistended, no suprapubic distention or tenderness, no CVA tenderness Neurologic: Grossly normal Skin: No rashes or suspicious lesions THIEN: benign. no asymmetry, induration, nodules. Assessment/Plan New pt referred by Dr. Antoine Madden for elevated PSA. Never seen in our office before (verified on [employer]). 1. BPH (benign prostatic hyperplasia) (N40.0: Benign prostatic hyperplasia without lower urinary tract symptoms) Pt c/o occasional weak stream, hesitancy to start urinating, some dysuria, and feeling of incomplete bladder emptying. States sometimes he squeezes his penis to allow more urine to come out. IPSS 10. UA today shows trace-intact blood, negative for nitrites and leuks. no PVR done as we don't have scanner in [place] currently. Pt is taking Tamsulosin 0.4mg daily per PCP. Discussed increasing tamsulosin to BID to help alleviate his sxs. Pt states he has tried BID a few years ago and it helped but then he went back to QD due to concerns over safety of medication. Also discussed changing to a different medication or different procedural options if pt prefers. Pros/Cons and SEs discussed. Educational pamphlets provided to pt about procedures. 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 We agreed to increase Flomax as opposed to adding a 5-JOSE D since this can affect PSA and we are already monitoring this (see #2). Pt prefers 2 tabs in am, this works best for him. -Increase Tamsulosin to 0.8mg QAM. Rx sent. watch for dizziness/lightheadedness/orthosta tic hypotension 2. Prostate cancer screening (Z12.5: Encounter for screening for malignant neoplasm of prostate) PSA 09/07/16 - 1.98 07/31/18 - 3.14 04/30/21 - 3.09 04/19/22 - 3.48 04/19/23 - 3.83 03/18/24 - 3.6 I discussed the pros and cons of PSA with the patient today. The various causes of PSA elevation were outlined, including prostate cancer, prostate enlargement, infection of the prostate, inflammation without infection, as well as prostate manipulation. The options regarding this PSA elevation, including prostate biopsy versus close monitoring, versus obtaining an MRI of the prostate were discussed. Overall, his PSA has shown a pretty slow/linear increase since, with some mild fluctuations (18- and 23-24). His PSA this year is down 0.23 from last year. THIEN neg. Only fam hx is a cousin. We agree since PSA <4.0 and no worrisome rate of increase, will just repeat in 1 yr. -Follow up in 1 year w/PSA ([place] [facility] 3. Family history of prostate cancer (Z80.42: Family history of malignant neoplasm of prostate) Cousin from Prostate CA. 4. Microhematuria (R31.29: Other microscopic hematuria) today's in-office UA shows trace-intact hgb. we will send for microscopic eval and culture. if shows significant microhematuria and completely negative cx, then we will need to proceed with hematuria eval. hematuria eval components were not discussed in depth during today's visit. if + will need phone call or o.v. to discuss at length. if micro negative then no additional action needed at this time - pt aware that no news is good news in this regard. 5. ED (erectile dysfunction) (N52.9: Male erectile dysfunction, unspecified) RACHID 12. Not very bothersome. Pt declines treatment right now. Orders: PSA Total Urnls Dip Stick Auto w/o Microscopy POC [id number] Follow-up With When Contact Information ANNE MARIE RUTLEDGE, JORGE Iniguez, URL [address] [place], [place] [address] (more content not included)... [facility] Comment on above: Result Comment: Elec tronically Signed By: JORGE KENNEY PA-C\.br\Date and Time Signed: 06/12/24 10:07 EDT\.br\Electronically Co-Signed By: Madina Gibbs\.br\Date and Time Co-Signed: 06/12/24 09:54 EDT 06-12-2024 Note Patient Education Oncology Prostate Cancer Screening Prostate cancer screening is testing that is done to check for the presence of prostate cancer in men. The prostate gland is a walnut-sized gland that is located below the bladder and in front of the rectum in males. The function of the prostate is to add fluid to semen during ejaculation. Prostate cancer is one of the most common types of cancer in men. Who should have prostate cancer screening? Screening recommendations vary based on age and other risk factors, as well as between the professional organizations who make the recommendations. In general, screening is recommended if: ? You are age 50 to 70 and have an average risk for prostate cancer. You should talk with your health care provider about your need for screening and how often screening should be done. Because most prostate cancers are slow growing and will not cause , screening in this age group is generally reserved for men who have a 10- to 15-year life expectancy. ? You are younger than age 50, and you have these risk factors: ? Having a father, brother, or uncle who has been diagnosed with prostate cancer. The risk is higher if your family member's cancer occurred at an early age or if you have multiple family members with prostate cancer at an early age. ? Being a male who is Black or is of Raje[place] or sub-Saharan descent. In general, screening is not recommended if: ? You are younger than age 40. ? You are between the ages of 40 and 49 and you have no risk factors. ? You are 70 years of age or older. At this age, the risks that screening can cause are greater than the benefits that it may provide. If you are at high risk for prostate cancer, your health care provider may recommend that you have screenings more often or that you start screening at a younger age. How is screening for prostate cancer done? The recommended prostate cancer screening test is a blood test called the prostate-specific antigen (PSA) test. PSA is a protein that is made in the prostate. As you age, your prostate naturally produces more PSA. Abnormally high PSA levels may be caused by: ? Prostate cancer. ? An enlarged prostate that is not caused by cancer (benign prostatic hyperplasia, or BPH). This condition is very common in older men. ? A prostate gland infection (prostatitis) or urinary tract infection. ? Certain medicines such as male hormones (like testosterone) or other medicines that raise testosterone levels. A rectal exam may be done as part of prostate cancer screening to help provide information about the size of your prostate gland. When a rectal exam is performed, it should be done after the PSA level is drawn to avoid any effect on the results. Depending on the PSA results, you may need more tests, such as: ? A physical exam to check the size of your prostate gland, if not done as part of screening. ? Blood and imaging tests. ? A procedure to remove tissue samples from your prostate gland for testing (biopsy). This is the only way to know for certain if you have prostate cancer. What are the benefits of prostate cancer screening? ? Screening can help to identify cancer at an early stage, before symptoms start and when the cancer can be treated more easily. ? There is a small chance that screening may lower your risk of dying from prostate cancer. The chance is small because prostate cancer is a slow-growing cancer, and most men with prostate cancer from a different cause. What are the risks of prostate cancer screening? The main risk of prostate cancer screening is diagnosing and treating prostate cancer that would never have caused any symptoms or problems. This is called overdiagnosisand overtreatment. PSA screening cannot tell you if your PSA is high due to cancer or a different cause. A prostate biopsy is the only procedure to diagnose prostate cancer. Even the results of a biopsy may not tell you if your cancer needs to be treated. Slow-growing prostate cancer may not need any treatment other than monitoring, so diagnosing and treating it may cause unnecessary stress or other side effects. Questions to ask your health care provider ? When should I start prostate cancer screening? ? What is my risk for prostate cancer? ? How often do I need screening? ? What type of screening tests do I need? ? How do I get my test results? ? What do my results mean? ? Do I need treatment? Where to find more information ? The [employer]: www.cancer.org ? [employer]: www.auanet.org Contact a health care provider if: ? You have difficulty urinating. ? You have pain when you urinate or ejaculate. ? You have blood in your urine or semen. ? You have pain in your back or in the area of your prostate. Summary ? Prostate cancer is a common type of cancer in men. The prostate gland is located below the bladder and in front of the rectum. (more content not included)... [facility] Evaluation + Plan note Future Appointments Appointment Date:04/22/2024 09:15:00 AM Scheduled Provider:Antoine Madden MD Location:[facility] Appointment Type: Open Appointment Date:04/22/2024 09:30:00 AM Scheduled Provider: Location:[facility] Appointment Type: Medicare Wellness Subsequent [facility] Evaluation + Plan note Future Appointments Appointment Date:10/05/2025 08:00:00 AM Scheduled Provider: Location:[facility] Appointment Type: Medicare Wellness Subsequent Future Scheduled TestsPSA Total 8/8/24HCV Antibody RFX to Quant PCR 04/22/24 [facility] Evaluation + Plan note Future Appointments Appointment Date:10/05/2025 08:00:00 AM Scheduled Provider: Location:[facility] Appointment Type:FM Medicare Wellness Subsequent Diagnostic Tests PendingUrine Culture 06/12/24 Future Scheduled TestsPSA Total 8/8/24HCV Antibody RFX to Quant PCR 04/22/24 [facility] Evaluation + Plan note Future Appointments Appointment Date:07/28/2024 12:00:00 PM Scheduled Provider: Location:[facility] Appointment Type:Urology CALL PAT FT Appointment Date:07/29/2024 09:30:00 AM Scheduled Provider: Location:[facility] Appointment Type:Urology FT Appointment Date:10/05/2025 08:00:00 AM Scheduled Provider: Location:[facility] Appointment Type:FM Medicare Wellness Subsequent Future Scheduled TestsPSA Total 8/8/24HCV Antibody RFX to Quant PCR 04/22/24 [facility] Evaluation + Plan note Future Appointments Appointment Date:07/28/2024 12:00:00 PM Scheduled Provider: Location:[facility] Appointment Type:Urology CALL PAT FT Appointment Date:07/29/2024 09:30:00 AM Scheduled Provider: Location:[facility] Appointment Type:Urology FT Appointment Date:10/05/2025 08:00:00 AM Scheduled Provider: Location:[facility] Appointment Type: Medicare Wellness Subsequent Diagnostic Tests PendingUrine Cytology ([facility]) 06/17/24 Future Scheduled TestsPSA Total 06/12/24CV Antibody RFX to Quant PCR 04/22/24 [facility] Hospital course Narrative No data available for this section [facility] Hospital Discharge instructions No data available for this section [facility] Progress note No data available for this section [facility] Summary Purpose Family History No Family History Records Found No data available for this section No data available for this section No data available for this section No Family History Records FoundNo Family History Records FoundNo Family History Records Found No data available for this section No data available for this section Advance Directives No Advanced Directives Records FoundNo Advanced Directives Records FoundNo Advanced Directives Records FoundNo Advanced Directives Records Found Additional Source Comments (unrecognized sect ion and content) No Status Records FoundNo Status Records FoundNo Status Records FoundNo Status Records Found INFORMATION SOURCE (unrecogn ized section and content) DATE CREATED AUTHOR 04/22/2022 [facility] DATE CREATED AUTHOR AUTHOR'S ORGANIZ ATION 06/14/2024 [facility] DATE CREATED AUTHOR AUTHOR'S ORGANIZ ATION 06/15/2024 [facility] DATE CREATED AUTHOR AUTHOR'S ORGANIZ ATION 06/16/2024 [facility] Patient Care team informatio n (unrecognized section and content) Personnel Name: Antoine Madden MD Address: Address: [facility] [place], [place] [address] Personnel Name: Antoine Madden MD Address: Address: [address] [place], [place] [address] Personnel Name: Antoine Madden MD Address: Address: [address] [place], [place] [address] [address] Personnel Name: Antoine Madden MD Address: Address: [address] [place], [place] [address] [address] Personnel Name: Antoine Madden MD Address: Address: [address] [place] [address] FOR RECORDS PERTAINING TO PATIENTS WHO ARE OR HAVE BEEN ENROLLED IN A CHEMICAL DEPENDENCY/SUBSTANCEABUSE PROGRAM, SOME INFORMATION MAY BE OMITTED. This clinical summary was aggregated from multiple sources. Caution should be exercised in using it in the provision of clinical care. This summary normalizes information from multiple sources, and as a consequence, information in this document may materially change the coding, format and clinical context of patient data. In addition, data may be omitted in some cases. CLINICAL DECISIONS SHOULD BE BASED ON THE PRIMARY CLINICAL RECORDS. [facility]. provides no warranty or guarantee of the accuracy or completeness of information in this document.
[2024-06-18 08:57] LABS: Estimated GFR (African America >60 (>=60); Estimated GFR (Non-African Ame >60 (>=60)
--- NOTE | 2024-06-18 09:16 | CT_ITS ---
[address] [address] Patient Name: VARUN ACE MRN: [id number] date: 1950 Sex: M Assigned Patient Location: LAB Current Patient Location: Accession/Order Number: [id number] Exam Date: 06/18/2024 09:35 Report Date: 06/19/2024 06:57 At the request of: JORGE KENNEY Procedure: CT abdomen pelvis wo/w con EXAMINATION: CT abdomen pelvis wo/w con HISTORY: Microhematuria R31.29 , occasional difficulty urinating COMPARISON: CT abdomen pelvis 09/20/2023 TECHNIQUE: Axial, Coronal, and Sagittal images were obtained without and/or with IV contrast as indicated by examination type. Dose reduction techniques were achieved by using automated exposure control and/or adjustment of mA and/or kV according to patient size and/or use of iterative reconstruction technique. FINDINGS: LUNG BASES: No visible pulmonary or pleural disease. LIVER: Stable scattered hypodensities favoring cysts or hemangiomas. BILIARY: No dilatation or calcification. PANCREAS: No lesion, fluid collection, or abnormal duct dilatation. SPLEEN: No enlargement or focal lesion. ADRENALS: Stable 1.5 cm left adrenal nodule. KIDNEYS: Nonobstructing 5 mm stone within right kidney. Unremarkable left kidney and bilateral ureters. BOWEL/MESENTERY: Marked diverticulosis of descending and sigmoid colon without acute inflammatory changes. No visible mass, obstruction, or bowel wall thickening. Normal appendix. AORTA/VASCULAR: No aneurysm or dissection. RETROPERITONEUM: No mass or adenopathy. LYMPH NODES: No adenopathy. URINARY BLADDER: No visible focal wall thickening, lesion, or calculus. PELVIC ORGANS: Enlarged lobular prostate protruding into base of bladder, approximately 6.6 x 6.4 x 5.4 cm. ABDOMINAL WALL: No mass or hernia. 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 Moderate to marked degenerative disc disease L3-L4 through L5-S1. OTHER: Negative. CT/CT abdomen pelvis wo/w con IMPRESSION: 1. Nonobstructing right nephrolithiasis. No ureteral stones or acute findings. 2. Enlarged prostate protruding into base of bladder which may contribute to patient's symptoms. 3.Marked diverticulosis of distal colon. 4. Degenerative changes of lumbar spine and borderline grade 2 anterolisthesis of L5 on S1. Electronically authenticated by: PRETTY DEL CID Date: 06/19/2024 06:57
== END 2024-06-18 08:36 | disposition home or self-care (01) ==
LOC: LAB 08:36
PROVIDERS: Visit Provider Physician Assistant
DX: R31.29 Other microscopic hematuria (principal); N20.0 Calculus of kidney
CPT/HCPCS: 36415; 74178; 82565; Q9967

== ENCOUNTER 2024-10-07 07:56 | Outpatient (OUT) | payer MEDICARE, SELFPAY ==
--- NOTE | 2024-10-07 08:06 | ECG_ITS ---
[facility] Test Date: 2024-10-07 Pat Name: VARUN ACE Department: Room: - Gender: Male Building Superintendent: : 1950 Requested By: CRISELDA ESTRADA Order Number: [id number] Reading MD: VENANCIO GOODEN Measurements Intervals [place] Rate: 72 P: 38 AR: 162 QRS: 15 QRSD: 101 T: 53 QT: 392 QTc: 429 Interpretive Statements SINUS RHYTHM Compared to ECG 09/20/2023 14:09:29 Short AR interval no longer present Left ventricular hypertrophy no longer present Electronically Signed On 10-07-2024 20:14:03 EST by VENANCIO GOODEN
--- NOTE | 2024-10-07 09:00 | P.GSHP_ITS ---
History of Present Illness History of Present Illness Chief complaint: bph with obstruction Narrative: Patient presents for presurgical testing. The patient reports nocturia which is bothersome, and intermittent incomplete bladder emptying, urgency, and weak urine stream. He states he had hematuria on a urine test, but has not noticed any gross hematuria. He denies nausea, vomiting, fever, abdominal pain, or any other complaints. Review of Systems ROS Narrative REVIEW OF SYSTEMS: Negative except as stated in HPI, ten or more systems reviewed. Constitutional: No fever, chills, weakness ENT: No sore throat or epistaxis Cardiovascular: No edema, chest pain, palpitations, or activity intolerance Respiratory: No shortness of breath, cough, or wheezing Musculoskeletal: No joint pain or swelling Gastrointestinal: No abdominal pain, constipation, diarrhea, or vomiting Neurological: No numbness, tingling, weakness, or headache Psychiatric: No mood changes PFSH PFS Medical History (Updated 10/07/24 @ 08:38 by Amelia Sanz NP) Arthritis ?M19.90 - Unspecified osteoarthritis, unspecified site (ICD-10) Snores ?R06.83 - Snoring (ICD-10) Elevated PSA ?R97.20 - Elevated prostate specific antigen [PSA] (ICD-10) Hematuria ?R31.9 - Hematuria, unspecified (ICD-10) BPH with obstruction/lower urinary tract symptoms ?N40.1 - Benign prostatic hyperplasia with lower urinary tract symptoms (ICD- 10) ?N13.8 - Other obstructive and reflux uropathy (ICD-10) Heartburn ?R12 - Heartburn (ICD-10) Constipation ?K59.00 - Constipation, unspecified (ICD-10) High cholesterol ?E78.00 - Pure hypercholesterolemia, unspecified (ICD-10) Surgical History (Updated 10/07/24 @ 08:33 by Amelia Sanz NP) History of colonoscopy ?Z98.890 - Other specified postprocedural states (ICD-10) Family History (Updated 10/07/24 @ 08:33 by Amelia Sanz NP) Other Family history of heart disease Family history of myocardial infarction Social History (Updated 10/07/24 @ 08:28 by Amelia Sanz NP) Within the past year, how often did you have a drink containing alcohol: monthly or less Smoking status: Never smoker Non-prescribed substance use: denies use Previous occupational history: [employer] Highest level of school completed/degree received: high school graduate Meds Home Medications and Allergies Home Medications ?Medication ?Instructions ?Recorded ?Confirmed ?Type coenzyme Q10 10 mg capsule (Co 10 mg PO DAILY 10/07/24 10/07/24 History Q-10) famotidine 20 mg tablet (Pepcid) 20 mg PO DAILY 10/07/24 10/07/24 History meloxicam 15 mg tablet 15 mg PO DAILY 10/07/24 10/07/24 History psyllium husk 0.4 gram capsule 0.4 g PO DAILY 10/07/24 10/07/24 History (Daily Fiber) rosuvastatin 20 mg tablet 20 mg PO QPM 10/07/24 10/07/24 History tamsulosin 0.4 mg capsule 0.8 mg PO DAILY 10/07/24 10/07/24 History Allergies Allergy/AdvReac Type Severity Reaction Status Date / Time No Known Drug Allergies Allergy Verified 10/07/24 08:21 Exam Narrative Exam Narrative: Constitutional: Awake, alert, appears younger than stated age, comfortable, well-appearing, nontoxic, interactive, vital signs as charted Head: Normocephalic, atraumatic Neck: Supple, normal appearance, normal range of motion, no meningeal signs, no lymphadenopathy Respiratory: No respiratory distress, breath sounds clear Cardiovascular: Regular rate and rhythm, strong and regular heart tones Abdomen: Nontender, normal bowel sounds, soft, no CVA tenderness Musculoskeletal: Normal gait, no swelling or edema Skin: No rashes or induration, no lesions, only visible skin inspected Neuro: No neurological deficits, normal sensation Psychiatric: Oriented ?3, normal affect Assessment and Plan Assessment and Plan (1) BPH with obstruction/lower urinary tract symptoms: (2) Hematuria: (3) Elevated PSA: Plan Cystoscopy, TURP scheduled with Dr. Hagan October 23, 2024.
[2024-10-07 09:05] LABS: Basophils Percent Auto 0.3 % (0.2-2.0); Eosinophils Absolute Auto 0.2 10^3/uL (0.0-0.7); Eosinophils Percent Auto 2.9 % (0.9-7.0); Hematocrit 45.1 % (42.0-54.0); Hemoglobin 15.2 g/dL (14.0-18.0); Immature Granulocytes Abs Auto 0.02 10^3/uL (0.00-0.03); Immature Granulocytes Pct Auto 0.3 % (0.0-0.5); Lymphocytes Absolute Auto 1.2 10^3/uL (1.2-3.8); Lymphocytes Percent Auto 20.1 % (20.5-60.0); Mean Corpuscular HGB Conc 33.7 g/dL (29.9-35.2); Mean Corpuscular Hemoglobin 29.3 pg (25.9-34.0); Mean Corpuscular Volume 86.9 fL (80.0-94.0); Mean Platelet Volume 10.5 fL (9.5-13.5); Monocytes Absolute Auto 0.6 10^3/uL (0.3-0.8); Monocytes Percent Auto 10.1 % (1.7-12.0); Neutrophils Absolute Auto 3.9 10^3/uL (1.4-6.5); Neutrophils Percent Auto 66.3 % (43.0-75.0); Platelet Count 185 10^3/uL (150-450); Red Blood Count 5.19 10^6/uL (4.70-6.10); Red Cell Distribution Width 11.9 % (11.0-15.0); White Blood Count 5.9 10^3/uL (4.0-11.0)
[2024-10-07 09:09] LABS: Anion Gap 11.1; BUN Creatinine Ratio 18.4; Calcium 9.1 mg/dL (8.5-10.1); Carbon Dioxide 27.1 mmol/L (21.0-32.0); Chloride 108 mmol/L (98-107); Estimated GFR (African America >60 (>=60 mL/min/1.73m^2); Estimated GFR (Non-African Ame >60 (>=60 mL/min/1.73m^2); Glucose 110 mg/dL (74-106); Potassium 4.2 mmol/L (3.5-5.1); Sodium 142 mmol/L (136-145)
[2024-10-07 09:14] LABS: INR 1.11; Partial Thromboplastin Time 27.1 sec (22.3-36.2); Prothrombin Time 11.6 sec (9.0-11.6)
== END 2024-10-07 07:57 | disposition home or self-care (01) ==
LOC: PST 07:58
PROVIDERS: PCP Family Medicine; Visit Provider Urology
DX: N40.1 Benign prostatic hyperplasia with lower urinary tract symptoms (principal)
CPT/HCPCS: 36415; 80048; 85025; 85610; 85730; 93005; G0463

== ENCOUNTER 2024-10-23 11:35 | Day surgery (SDC) | payer MEDICARE, SELFPAY ==
[2024-10-07 08:56] VITALS: BP 149/77; PULSE 72; TEMP 36.3; O2SAT 98; BMI 33.6
[2024-10-23] VITALS (20 sets, daily range): BP systolic 135–168; BP diastolic 74–91; PULSE 56–78; TEMP 36.2–36.7; O2SAT 91–100; BMI 34.0
[2024-10-23] MEDS: LACTATED RINGER'S SOLUTION 1,000 ML 50 ML IV ×2 (12:20→13:15)
[2024-10-23] MEDS: LEVOFLOXACIN IN DEXTROSE 5 % 500 MG/100 ML PREMIX 100 MG IV (13:43)
--- NOTE | 2024-10-23 15:17 | PM.URSON ---
Urology Surgery Operative Note Operative Note Procedure Date: 10/23/24 Time Out Performed: yes Pre-op Diagnosis: BPH with LUTS refractory to medications and bladder calculi Post-op Diagnosis: same as pre-op Procedures performed: 1. Cystoscopy. 2. Transurethral resection of the prostate. Anesthesia: GETA Primary Surgeon: Isaac Hagan Complications: None Estimated blood loss (mL): 15 Findings: Trilobar obstruction and extremely vascular prostate Specimens: Prostate chips Drains: 22 Polish three-way coud? Campos catheter taped to traction and CBI Indications for Procedures: This gentleman has BPH with LUTS for which he takes Flomax. He still has outlet obstructive symptoms. On endoscopy he was found to have a significantly obstructing prostate in a trilobar manner along with multiple small bladder calculi. He now presents for cystoscopy and transurethral resection of the prostate. He has signed an informed consent after risks were explained. Some of these risks include bleeding, infection, anesthesia, urinary incontinence both temporary and permanent, retrograde ejaculation, erectile dysfunction and the possible need for further operations to name a few. Detailed description of Procedure: The patient was brought to the operating room and placed on the operating room table in the supine position. SCDs were placed on the lower extremities and turned on and functioning during the entire case. Timeout was done by all parties in the room. We all agreed upon the patient's identification and the planned procedures for this patient. Genn. anesthesia was then administered. The patient was then repositioned into the modified dorsal lithotomy position. All pressure points were satisfactorily padded. Genitalia were sterilely prepped and draped in usual fashion. I started by passing a 26 Polish Olympus resectoscope with a standard bipolar loop electrode per urethra and into the bladder. The ureteral orifices were marked with the loop electrode. I then sat on top of the median lobe and uniformly resected this down to the bladder neck level. The left lateral lobe was capacious and it crossed the midline. I resected this from the bladder neck to the apex region and to the capsular level. The right lateral lobe and the anterior tissue were resected similarly. The anterior tissue was very capacious especially at the bladder neck thus facilitating four lobe obstruction of the bladder neck. This prostate was very vascular and attention had to be paid to coagulation continuously during the procedure. The scope was brought back to the apex. This was opened up carefully. There was coaptation of the apical lobes distal to the Veru. This had to be opened up. Upon completion the resection bed was coagulated. The Ilich evacuator was used to get a ll the prostate chips out of the bladder. These were sent for permanent sections. The bladder neck and prostatic urethra were now wide open. There was no bleeding. There were no chips in the bladder. The scope was then removed. I then placed a 22 Polish three-way coud? Campos catheter in the bladder. It was irrigated manually to verify correct placement. 30 cc of fluid was placed in the balloon. It was taped to traction and CBI was started. It irrigated to a clear color. The anesthetic was then reversed. He was then transferred to a gurglade spring bed and wheeled to PACU in stable condition. Urinary Catheter Management Urinary Catheter Management Urethral: Cath placed during this visit: no
--- NOTE | 2024-10-23 15:38 | PC.NURSE ---
upon arrival to PACU urine pale pink in color no clots and patient had medium loose stool in the bed. Cleaned him up and he is resting comfortable as he can. complains of burning at the tip of the penis.
[2024-10-23] MEDS: CEFAZOLIN SODIUM/DEXTROSE,ISO 1 GM/50 ML PREMIX IV ×2 (16:12→22:17)
[2024-10-23] MEDS: SOLIFENACIN SUCCINATE 10 MG TABLET PO (16:12)
[2024-10-23] MEDS: SODIUM CHLORIDE IRRIG SOLUTION 3,000 ML 3000 ML IRR ×7 (16:12→23:04)
[2024-10-23] MEDS: 0.9 % SODIUM CHLORIDE 1,000 ML 80 ML IV (16:12)
[2024-10-23] MEDS: TEMAZEPAM 15 MG CAPSULE PO (20:53)
[2024-10-24] MEDS: SODIUM CHLORIDE IRRIG SOLUTION 3,000 ML 3000 ML IRR ×2 (01:06→02:14)
[2024-10-24 03:48] VITALS: BP 129/74; PULSE 71; TEMP 36.6; O2SAT 94
--- NOTE | 2024-10-24 05:08 | PC.NURSE ---
Continuous bladder irragation turned down at this time. Traction tape to left thigh removed at this time.
--- NOTE | 2024-10-24 05:34 | PC.NURSE ---
Urine dark pink in color. Continuous bladder irrigation weaned down to almost off.
[2024-10-24 07:10] VITALS: BP 127/63; PULSE 79; TEMP 36.7; O2SAT 94
[2024-10-24] MEDS: SOLIFENACIN SUCCINATE 10 MG TABLET PO (08:47)
== END 2024-10-24 09:42 | disposition home or self-care (01) ==
LOC: SURGOUT 15:13 → MS 16:03
PROVIDERS: PCP Family Medicine; Visit Provider Urology
PROC: (CPT 52601; principal; 2024-10-23 12:50)
DX: N40.1 Benign prostatic hyperplasia with lower urinary tract symptoms (principal); R33.8 Other retention of urine; R39.15 Urgency of urination; R39.12 Poor urinary stream; N13.8 Other obstructive and reflux uropathy; E78.00 Pure hypercholesterolemia, unspecified; Z79.1 Long term (current) use of non-steroidal anti-inflammatories (NSAID); Z79.899 Other long term (current) drug therapy
CPT/HCPCS: 52601; 36415; 88305; 88342; J0690; J1100; J2250; J2371; J2405; J2704; J2710; J3010